=== PATIENT | male | born 1960 | race American Indian/Alaskan Native ===

== ENCOUNTER 2017-01-29 06:21 | Emergency (ER) | payer MEDICAID ==
[2017-01-29 06:21] VITALS: BMI 34.0
[2017-01-29 06:25] VITALS: PULSE 91; RESP 16; TEMP 98; O2SAT 96
--- NOTE | 2017-01-29 07:39 | ED PDOC ---
HPI: Trauma/Fall - HPI Time Seen by Provider: 01/29/17 07:11 Chief Complaint (Nursing): Trauma Chief Complaint (Provider): Fall History Per: Patient History/Exam Limitations: no limitations Onset/Duration Of Symptoms: Hrs Injury Occurred (Timing): Just Before Arrival Severity: None Additional Complaint(s): Patient is a 56 year old male who presents to ED for evaluation of a fall this morning. Patient reports that he fell from his wheelchair sideways when it slipped on water. He then landed on the ground. States that due to his chronic left sided paralysis he had to crawl to a sign post to help him stand up. At this time had mild diffuse body pain which prompted ED visit. Currently in ED patient denies any pain, states mild injury to left hand but denies any pain. Denies numbness, head injury, LOC, neck pain or back pain. No new weakness. Did not hit his head or neck. Past Medical History Reviewed: Historical Data, Nursing Documentation, Vital Signs Vital Signs: Last Vital Signs Temp 98 F 01/29/17 06:23 Pulse 91 H 01/29/17 06:23 Resp 16 01/29/17 06:23 BP 155/110 H 01/29/17 06:23 Pulse Ox 96 01/29/17 06:23 - Medical History PMH: CVA, Deep Vein Thrombosis, Gastritis, HTN, Hyperlipidemia, Peripheral Edema , Pulmonary Embolism, Seizures Other PMH: no blood thinners for 1 month, doctors took him off of them - Surgical History Surgical History: No Surg Hx - Family History Family History: States: Unknown Family Hx - Social History Current smoker - smoking cessation education provided: Yes Alcohol: None Drugs: Denies - Immunization History Hx Influenza Vaccination: Yes - Home Medications Home Medications: Ambulatory Orders Medication Instructions Recorded Enoxaparin [Lovenox] 40 mg SQ DAILY 10/18/16 Levetiracetam [Keppra] 750 mg PO DAILY 10/18/16 - Allergies Allergies/Adverse Reactions: Allergies Allergy/AdvReac Type Severity Reaction Status Date / Time No Known Allergies Allergy Verified 01/29/17 06:23 Review of Systems ROS Statement: Except As Marked, All Systems Reviewed And Found Negative Constitutional: Negative for: Fever, Chills, Weakness Eyes: Negative for: Vision Change Cardiovascular: Negative for: Chest Pain Respiratory: Negative for: Shortness of Breath Gastrointestinal: Negative for: Nausea, Vomiting Musculoskeletal: Negative for: Neck Pain, Back Pain Neurological: Negative for: Weakness, Numbness Physical Exam - Reviewed Nursing Documentation Reviewed: Yes Vital Signs Reviewed: Yes - Physical Exam Appears: Positive for: Non-toxic, No Acute Distress Head Exam: Positive for: ATRAUMATIC, NORMAL INSPECTION Skin: Positive for: Normal Color, Warm Eye Exam: Positive for: Normal appearance, EOMI, PERRL ENT: Positive for: Normal ENT Inspection Neck: Positive for: Normal, Painless ROM, Supple Cardiovascular/Chest: Positive for: Regular Rate, Rhythm. Negative for: Murmur Respiratory: Positive for: Normal Breath Sounds. Negative for: Respiratory Distress Gastrointestinal/Abdominal: Positive for: Normal Exam, Soft. Negative for: Tenderness Back: Positive for: Normal Inspection. Negative for: L CVA Tenderness, R CVA Tenderness Extremity: Positive for: Normal ROM, Other (Left hand: Index, Ring and 5th digtis mid dorsum with small abrasions (-) tenderness (-) active bleeding ). Negative for: Tenderness, Calf Tenderness, Swelling Neurologic/Psych: Positive for: Alert, taper machine II-XII, Oriented. Negative for: Motor/Sensory Deficits (L side almost paralysis; not new) - ECG O2 Sat by Pulse Oximetry: 96 (RA) Pulse Ox Interpretation: Normal - Progress ED Course And Treament: 747: Stable. AAOx3. Bandage applied to abrasions on fingers. Pt. has no pain or complaints. Fu with pcp. Is wheelchair bound. Medical Decision Making Medical Decision Making: Time: 729 Initial impression: Fall Initial plan: Abrasions cleaned and dressed Discussed wound care with patient, advised Motrin or Tylenol as needed for pain and to follow up with PMD' Scribe Attestation: Documented by Rhina Butcher acting as a scribe for Demetrius Ferrer MD MD Scribe Attestation: All medical record entries made by the Scribe were at my direction and personally dictated by me. I have reviewed the chart and agree that the record accurately reflects my personal performance of the history, physical exam, medical decision making, and the department course for this patient. I have also personally directed, reviewed, and agree with the discharge instructions and disposition. Disposition - Clinical Impression Clinical Impression: Abrasion - Patient ED Disposition Is Patient to be Admitted: No Counseled Patient/Family Regarding: Diagnosis, Need For Followup - Disposition Referrals: [facility] [Outside] - 02/01/17 Disposition: Routine/Home Disposition Time: 07:48 Condition: STABLE Additional Instructions: Return if not better in 3 days. Instructions: Abrasion (ED)
[2017-01-29 08:46] VITALS: BP 138/80
== END 2017-01-29 09:43 | disposition home or self-care (01) ==
LOC: H.ER 06:21
DX: T14.8 Other injury of unspecified body region (principal); W05.0XXA Fall from non-moving wheelchair, initial encounter; Y92.89 Other specified places as the place of occurrence of the external cause; E78.5 Hyperlipidemia, unspecified; I10 Essential (primary) hypertension; Z86.711 Personal history of pulmonary embolism; Z86.718 Personal history of other venous thrombosis and embolism; Z86.73 Personal history of transient ischemic attack (TIA), and cerebral infarction without residual deficits

== ENCOUNTER 2017-03-07 18:55 | Inpatient (IN) | payer MEDICAID ==
[2017-03-07 18:56] VITALS: BMI 34.0
[2017-03-07 20:15] LABS: BASO # 0.1 K/uL (0.0-0.2); BASO % 0.8 % (0.0-2.0); EOS # 0.1 K/uL (0.0-0.7); EOS % 1.2 % (0.0-4.0); HEMATOCRIT 38.4 % (35.0-51.0); LYMPH # 3.2 K/uL (1.0-4.3); LYMPH % 28.5 % (20.0-40.0); MEAN CELL VOLUME 76.9 fl (80.0-94.0); MEAN CORPUSCULAR HGB CONC 31.2 g/dL (33.0-37.0); MEAN PLATELET VOLUME 9.6 fl (7.2-11.7); MONO # 0.8 K/uL (0.0-0.8); MONO % 7.1 % (0.0-10.0); NEUT # 6.9 K/uL (1.8-7.0); NEUT % 62.4 % (50.0-75.0); NRBC % 0.1 % (0.0-0.0); RED CELL DISTRIBUTION WIDTH 15.8 % (11.5-14.5); WHITE BLOOD COUNT 11.1 K/uL (4.8-10.8)
[2017-03-07 20:32] LABS: BLOOD UREA NITROGEN 11 mg/dl (9-20); CALCIUM 9.4 mg/dL (8.4-10.2); CARBON DIOXIDE 28 mmol/L (22-30); CHLORIDE 105 mmol/L (98-107); GFR AFRICAN-AMERICAN > 60; GLUCOSE,RANDOM 95 mg/dL (75-110); POTASSIUM 3.9 MMOL/L (3.6-5.0); SODIUM 144 mmol/l (132-148)
--- NOTE | 2017-03-07 21:10 | ED PDOC ---
Lower Extremity Pain/Injury Time Seen by Provider: 03/07/17 19:15 Chief Complaint (Nursing): Lower Extremity Problem/Injury Chief Complaint (Provider): Lower Extremity Problem History Per: Patient History/Exam Limitations: no limitations Onset/Duration Of Symptoms: Days (1x week, worsened today) Current Symptoms Are (Timing): Still Present Severity: Moderate Additional Complaint(s): 56 year old male with a pertinent medical history of CHF and hypertension presents to the ED with complaints of bilateral leg pain and swelling that started 1x week ago, but worsened today when he woke up (approximately 0x hours prior to arrival). He reports that his left leg has more pain and swelling than the right leg. He also reports waking up today with shortness of breath, which has since resolved. He denies having chest pain, fever and cough. Of note: patient has a history of a left sided stroke. He is on disability and is wheelchair bound. PMD: Shi RUIZ Past Medical History Reviewed: Historical Data, Nursing Documentation, Vital Signs Vital Signs: Last Vital Signs Temp 98.2 F 03/07/17 19:02 Pulse 87 03/07/17 19:02 Resp 19 03/07/17 19:02 BP 158/96 H 03/07/17 20:11 Pulse Ox 98 03/07/17 19:02 - Medical History PMH: CVA, Deep Vein Thrombosis, Gastritis, HTN, Hypercholesterolemia, Hyperlipidemia, Peripheral Edema, Pulmonary Embolism, Seizures Denies: Asthma, Atrial Fibrillation, Bronchitis, Cardia Arrhythmia, CHF, COPD , Emphysema, Mitral Valve Prolapse, Pneumonia, Chronic Kidney Disease, Sleep Apnea - Surgical History Surgical History: Denies: Pacemaker - Family History Family History: States: Unknown Family Hx - Living Arrangements Living Arrangements: Other (homeless) - Social History Alcohol: None Drugs: Denies - Immunization History Hx Influenza Vaccination: Yes - Home Medications Home Medications: Ambulatory Orders Medication Instructions Recorded Levetiracetam [Keppra] 750 mg PO DAILY 10/18/16 hydroCHLOROthiazide [Hydrodiuril] 25 mg PO DAILY 02/05/17 Carvedilol [Coreg] 3.125 mg PO BID 02/16/17 Enalapril Maleate [Vasotec] 5 mg PO DAILY 02/16/17 Furosemide [Lasix] 40 mg PO BID 02/16/17 - Allergies Allergies/Adverse Reactions: Allergies Allergy/AdvReac Type Severity Reaction Status Date / Time No Known Allergies Allergy Verified 01/29/17 06:23 Physical Exam - Reviewed Nursing Documentation Reviewed: Yes Vital Signs Reviewed: Yes - Physical Exam Appears: Positive for: Well, Non-toxic, No Acute Distress Head Exam: Positive for: ATRAUMATIC, NORMOCEPHALIC Cardiovascular/Chest: Positive for: Regular Rate, Rhythm Respiratory: Positive for: Normal Breath Sounds. Negative for: Respiratory Distress Gastrointestinal/Abdominal: Positive for: Normal Exam, Soft. Negative for: Tenderness Extremity: Positive for: Calf Tenderness (left calf tenderness only), Swelling ( bilteral lower extremity swelling (more on the lef lower extremity). No erythema.) Neurologic/Psych: Positive for: Alert, Oriented (3x) - Laboratory Results Result Diagrams: 03/07/17 20:05 03/07/17 20:05 - ECG O2 Sat by Pulse Oximetry: 98 (RA) Pulse Ox Interpretation: Normal Medical Decision Making Medical Decision Makin:15 Initial impression: 56 year old male with bilateral lower leg swelling and pain. Differential diagnoses include but are not limited to CHF. Rule out DVT. Initial plan: * EKG * B-type natriuretic peptide * BMP * CBC * XRay chest portable * lasix 40mg IVP * US duplex lower extremity venous left * reevaluation CXR : vascular congestion. Duplex: no acute findings Scribe Attestation: Documented by Anali Zambrano, acting as a scribe for Robyn Barriga MD. Provider Scribe Attestation: All medical record entries made by the Scribe were at my direction and personally dictated by me. I have reviewed the chart and agree that the record accurately reflects my personal performance of the history, physical exam, medical decision making, and the department course for this patient. I have also personally directed, reviewed, and agree with the discharge instructions and disposition. Disposition - Clinical Impression Clinical Impression: HTN (hypertension), CHF (congestive heart failure) - Patient ED Disposition Is Patient to be Admitted: Yes Discussed With Dr.: Toro Ludwig Doctor Will See Patient In The: Hospital Counseled Patient/Family Regarding: Studies Performed, Diagnosis - Disposition Disposition Time: 23:23 Condition: FAIR - Pt Status Changed To: Hospital Disposition Of: Observation - POA Present On Arrival: None
--- NOTE | 2017-03-07 22:15 | US ---
EXAM: US Duplex Left Lower Extremity Veins CLINICAL HISTORY: 56 years old, male; Signs and symptoms; Swelling of limb; Lower extremity, left; Additional info: Left leg swelling TECHNIQUE: Real-time ultrasound scan of the veins of the left lower extremity with color Doppler flow, spectral waveform analysis and compression. COMPARISON: No relevant prior studies available. FINDINGS: Deep veins: Unremarkable. No DVT in the common femoral, femoral, proximal deep femoral or popliteal veins. The veins are compressible with normal color flow and augmentation. Superficial veins: Unremarkable. No thrombus in the visualized greater saphenous vein. Soft tissues: No acute findings. No popliteal cyst. IMPRESSION: Normal left lower extremity duplex venous ultrasound.
[2017-03-08 07:37] LABS: BASO # 0.1 K/uL (0.0-0.2); BASO % 0.7 % (0.0-2.0); EOS # 0.1 K/uL (0.0-0.7); HEMATOCRIT 33.8 % (35.0-51.0); LYMPH # 2.3 K/uL (1.0-4.3); LYMPH % 26.9 % (20.0-40.0); MEAN CELL VOLUME 75.8 fl (80.0-94.0); MEAN CORPUSCULAR HEMOGLOBIN 24.2 pg (27.0-31.0); MEAN PLATELET VOLUME 8.8 fl (7.2-11.7); MONO # 0.7 K/uL (0.0-0.8); MONO % 7.6 % (0.0-10.0); NEUT # 5.4 K/uL (1.8-7.0); NEUT % 63.8 % (50.0-75.0); NRBC % 0.1 % (0.0-0.0); RED CELL DISTRIBUTION WIDTH 15.5 % (11.5-14.5); WHITE BLOOD COUNT 8.5 K/uL (4.8-10.8)
[2017-03-08 07:55] LABS: CHOLESTEROL 148 mg/dL (0-199)
--- NOTE | 2017-03-08 08:04 | RAD ---
HISTORY: Dyspnea. COMPARISON: No prior. FINDINGS: LUNGS: No active pulmonary disease. Persistent elevation left hemidiaphragm, fluid and debris filled colon identified under elevated left hemidiaphragm. PLEURA: No significant pleural effusion identified, no pneumothorax apparent. CARDIOVASCULAR: Cardiomegaly. No evidence of acute, significant cardiovascular disease. OSSEOUS STRUCTURES: No significant abnormalities. VISUALIZED UPPER ABDOMEN: Normal. OTHER FINDINGS: None. IMPRESSION: No active disease. No significant interval change compared to the prior examination(s).
[2017-03-08] MEDS: Enoxaparin 40 mg Syringe SC SCH (08:56)
[2017-03-08] MEDS ORDERED: Patient's Own Med (Levetiracetam [Keppra] 750 MG) PO SCH (09:00)
--- NOTE | 2017-03-08 09:43 | CP.PCM.CON ---
History of Present Illness - History of Present Illness History of Present Illness: Full Note Dictated. CHF (LV, Syst, Chr) Exacerbated with Salt excess HTN Seizure disorder Echo of 01/2017 reviewed (LVEF severely depressed) Jacobo then return pt to his PMD for out pt care. Past Patient History - Infectious Disease Hx of Infectious Diseases: None - Past Medical History & Family History Past Medical History?: Yes - Past Social History Alcohol: None Drugs: Denies - CARDIAC Hx Cardiac Disorders: Yes (HTN, HIGH CHOLESTEROL) - PULMONARY Hx Asthma: No Hx Bronchitis: No Hx Chronic Obstructive Pulmonary Disease (COPD): No Hx Emphysema: No Hx Pneumonia: No Hx Pulmonary Embolism: Yes Hx Sleep Apnea: No - NEUROLOGICAL Hx Neurological Disorder: Yes (CVA LFET SIDED WEAKNESS, WHEELCHAIR BOUND) - HEENT Hx HEENT Problems: No - RENAL Hx Chronic Kidney Disease: No - ENDOCRINE/METABOLIC Hx Endocrine Disorders: No - HEMATOLOGICAL/ONCOLOGICAL Hx Blood Disorders: No - INTEGUMENTARY Hx Dermatological Problems: No - MUSCULOSKELETAL/RHEUMATOLOGICAL Hx Falls: No Hx Unsteady Gait: Yes - GASTROINTESTINAL Hx Gastritis: Yes - GENITOURINARY/GYNECOLOGICAL Hx Incontinence: Yes Hx Urinary Tract Infection: Yes - PSYCHIATRIC Hx Substance Use: No (as per pt) Other/Comment: noncompliance with meds/ medical regimen - SURGICAL HISTORY Hx Surgeries: No Other/Comment: ivc filter - ANESTHESIA Hx Anesthesia: Yes Hx Anesthesia Reactions: No Meds Allergies/Adverse Reactions: Allergies Allergy/AdvReac Type Severity Reaction Status Date / Time No Known Allergies Allergy Verified 01/29/17 06:23 - Medications Medications: Current Medications Carvedilol (Coreg) 3.125 mg PO BID [facility] Last Admin: 03/08/17 08:55 Dose: 3.125 mg Enalapril Maleate (Vasotec) 5 mg PO DAILY [facility] Last Admin: 03/08/17 08:56 Dose: 5 mg Enoxaparin Sodium (Lovenox) 40 mg SC DAILY [facility] PRN Reason: Protocol Last Admin: 03/08/17 08:56 Dose: 40 mg Furosemide (Lasix) 40 mg IV BID [facility] Last Admin: 03/08/17 08:56 Dose: 40 mg Levetiracetam (Keppra) 750 mg PO DAILY [facility] Last Admin: 03/08/17 08:55 Dose: 750 mg Results - Vital Signs Recent Vital Signs: Last Vital Signs Temp 98.8 F 03/08/17 07:54 Pulse 76 03/08/17 08:55 Resp 18 03/08/17 07:54 BP 143/85 03/08/17 08:56 Pulse Ox 97 03/08/17 07:54 - Labs Result Diagrams: 03/08/17 07:15 03/07/17 20:05 Labs: Laboratory Results - last 24 hr 03/08/17 03/08/17 03/08/17 07:15 07:15 07:15 WBC 8.5 RBC 4.47 Hgb 10.8 L Hct 33.8 L MCV 75.8 L MCH 24.2 L MCHC 32.0 L RDW 15.5 H Plt Count 205 MPV 8.8 Neut % (Auto) 63.8 Lymph % (Auto) 26.9 [place] % (Auto) 7.6 Eos % (Auto) 1.0 Baso % (Auto) 0.7 Neut # 5.4 Lymph # 2.3 [place] # 0.7 Eos # 0.1 Baso # 0.1 Triglycerides 77 Cholesterol 148 LDL Cholesterol Direct 85 HDL Cholesterol 35 TSH 3rd Generation 0.85
--- NOTE | 2017-03-08 09:50 | IP.NPCORE ---
Heart Failure Core Measure - Heart Failure Ejection Fraction: Less Than 40 % Left Ventricular Function to be assessed after discharge: No CONOR Inhibitor Prescribed: Yes Beta-Dia Prescribed: Carvedilol Contraindication/Reason for not providing: no hx of afib - Follow up Will be discharged to: [facility] Follow Up Date (must be within 7 days from discharge): 03/17/17 ([facility] ) Follow Up Time: 09:00
--- NOTE | 2017-03-09 01:56 | HP ---
HISTORY OF PRESENT ILLNESS: This is a 56-year-old -[place] male who is homeless and currently lives in a intermediate with history of congestive heart failure, hypertension, status post cerebrovascular accident with left-sided hemiplegia. The patient presented to Emergency Room with progressive by both lower extremities edema over 1 week. The patient also was complaining of shortness of breath. The patient was evaluated in the Emergency Room and he was found to have an elevated proBNP, as well as he had previous echocardiogram with ejection fraction of 35%. The patient was admitted for exacerbation of congestive heart failure, both systolic and diastolic, likely secondary to noncompliance to medications and diet and water restrictions. REVIEW OF SYSTEMS: Positive for left-sided hemiplegia and patient is wheelchair bound. PAST MEDICAL HISTORY: Hypertension, cerebrovascular accident with left-sided hemiplegia. SOCIAL HISTORY: Smoker. Denies ETOH or substance abuse. FAMILY HISTORY: Noncontributory. HOME MEDICATIONS: Enalapril 5 mg daily, hydrochlorothiazide 25 mg daily, furosemide 40 mg twice a day, carvedilol 3.125 mg twice a day, Keppra 750 mg daily. PHYSICAL EXAMINATION: GENERAL: The patient is in bed, not in any cardiopulmonary distress . VITAL SIGNS: Blood pressure 165/90, temperature 98.3, respiratory rate 20, and pulse 86. HEENT: Pupils equal, reactive to light. Normal-appearing mucosa of the conjunctivae, oropharyngeal and nasal membrane mucosa. NECK: Supple, no JVD, no carotid bruit, no lymph node, no thyromegaly. CHEST AND LUNGS: Bilateral symmetrical expansion, good air exchange, no rales, no rhonchi. CARDIOVASCULAR: PMI not localized. S1, S2. No additional sounds. ABDOMEN: Normoactive bowel sounds, no tenderness, no organomegaly, no masses. EXTREMITIES: No cyanosis, no clubbing. Bilateral lower extremity +2 edema. CENTRAL NERVOUS SYSTEM: Alert, awake, oriented x 2. The patient has left- sided hemiplegia. ASSESSMENT: 1. exacerbation of congestive heart failure, acute on top of chronic, systolic and diastolic. 3. Hypertension. 4. Status post cerebrovascular accident with left-sided hemiplegia, wheelchair bound. PLAN: Continue Lasix and beta blockers and CONOR inhibitors. Cardiology consult. Those are recommendations. Physical therapy. [facility] S Oziel RUIZ cc: 167 TT: 03/09/2017 01:55:59 [facility] # [id number] regina KULKARNI
--- NOTE | 2017-03-09 02:17 | CARD ---
APPROVED REPORT EKG Measurement Heart [id number] MD [id number] <Conclusion> Sinus rhythm with occasional premature ventricular complexes Left ventricular hypertrophy with QRS widening Cannot rule out Septal infarct, age undetermined Cannot rule out Inferior infarct, age undetermined Abnormal ECG
[2017-03-09 07:30] LABS: ALB/GLOB RATIO 1.2 (1.0-2.1); ALKALINE PHOSPHATASE 59 U/L (38-126); ALT/SGPT 23 U/L (21-72); AST/SGOT 19 U/L (17-59); BILIRUBIN,TOTAL 0.6 mg/dl (0.2-1.3); BLOOD UREA NITROGEN 9 mg/dl (9-20); CALCIUM 8.6 mg/dL (8.4-10.2); CARBON DIOXIDE 27 mmol/L (22-30); CHLORIDE 104 mmol/L (98-107); GFR AFRICAN-AMERICAN > 60; GLUCOSE,RANDOM 101 mg/dL (75-110); POTASSIUM 3.1 MMOL/L (3.6-5.0); SODIUM 142 mmol/l (132-148); TOTAL PROTEIN 6.9 G/DL (6.3-8.2)
--- NOTE | 2017-03-09 08:41 | CON ---
DATE: 03/08/2017 He is hospitalized under Dr. Oziel leon in room 403, bed 1. HISTORY OF PRESENT ILLNESS: This 56-year-old hypertensive -[place] man has had a history of congestive cardiac failure for which he has repeatedly visited Emergency Room and has been hospitaliz ed a couple of times in this institution and in a nearby hospital. There is a history of seizure dis order for which he is on Keppra. He admits to smoking about a pack of cigarettes a day. Has never s uffered a myocardial infarction, but has had recurring pedal edema and periods of shortness of breath . He denies ever having had a heart attack and has never undergone coronary angiography. By his acc ount, he has taken his medicines regularly, though he admits that he has not been very careful with s alt intake and has eaten preserved food regularly. He began to notice worsening pedal edema and evon domínguez came into the Emergency Room and also describes shortness of breath with minimal exertion. He is not a diabetic. PHYSICAL EXAMINATION: GENERAL: Shows a middle-aged, overweight -[place]rist[place] male who is comfortable, propped up in bed . VITAL SIGNS: With a respiratory rate of approximately 18 breaths per minute. Has a heart rate of 7 4 beats per minute, regular, and a blood pressure of 124/70 mmHg. NECK: His jugular venous pressure was mildly elevated. EXTREMITIES: There was pitting edema of both lower extremities. The pedal pulses were not palpable, probably because of significant pedal edema. CARDIOVASCULAR: There were no carotid bruits. The apex could not be felt. The first and second hea rt sounds were distant. There was a faint S3 gallop. LUNGS: There were scattered rales at both bases. DIAGNOSTIC DATA: His electrocardiogram shows sinus rhythm with poor progression of R-wave on his electrocardiogram at [facility]. Subsequent electrocardiograms show a similar pattern. There is also Q-waves in lead 3, but none seen in aVF. There were nonspecific ST-T changes. Review of his echocardiogram dated 02/17/2017 shows a poor echo window with suboptimal images, but there wa s significant left ventricular systolic dysfunction with generalized hypokinesia particularly pronoun cristofer in the anterior wall and anteroseptal region. The estimated ejection fraction was in the range o f 35%. LABORATORY DATA: Shows a hemoglobin and hematocrit of 12 g and 38.4% respectively. His platelet cou nts were normal and his BUN and creatinine were 11 and 0.9 mg%. His proBNP was 1610. Lipid profile was normal and thyroid profile was normal. Chest x-ray was noted and, again, his echocardiogram of 0 02/17/2017 was reviewed. IMPRESSION: At this time, is congestive cardiac failure which is chronic, left ventricular and systo lic, exacerbated by unrestricted salt intake in a patient with hypertension, history of seizure. The patient is being diuresed with the use of intravenous furosemide. His carvedilol and enalapril have been restarted. His labs are being watched as well. He will get a dietary counseling so as to riccardo ail his salt intake. Once he has been diuresed and euvolemic, he can be returned to his primary care physician and can have outpatient care. Dajuan Will MD cc: 23 TT: 03/08/2017 10:39:36 Confirmation # [id number] Dictation # [id number] mn 03/09/2017 07:38:26
[2017-03-09] MEDS: Enoxaparin 40 mg Syringe SC SCH (09:50)
[2017-03-09] MEDS ORDERED: Potassium Chloride 20 mEq ER Tab PO ONE (10:00)
--- NOTE | 2017-03-09 22:13 | PN ---
DATE: 03/09/2017 SUBJECTIVE: The patient is seen today. He is not in any cardiopulmonary distress at this point and decrease of the edema. OBJECTIVE: VITAL SIGNS: Blood pressure 130/78 , pulse 78 , temp 98.2. HEENT: Pupils equal, reactive to light. Normal-appearing mucosa of the conjunctivae, oropharyngeal, and nasal membrane mucosa. NECK: Supple. No JVD. No carotid bruit. No lymph node. No thyromegaly. CHEST AND LUNGS: Bilateral symmetrical expansion. Good air exchange. No rales. No rhonchi. CARDIOVASCULAR: PMI not localized. S1, S2. No additional sounds. ABDOMEN: Normoactive bowel sounds, No tenderness. No organomegaly. No masses. EXTREMITIES: No cyanosis. No clubbing. No edema. CENTRAL NERVOUS SYSTEM: Alert, awake, oriented x 2. Left-sided hemiparesis. ASSESSMENT: 1. Congestive heart failure, systolic and diastolic, acute on top of chronic. 2. Hypertension. 3. Status post cerebrovascular accident with left-sided hemiplegia. 4. Seizure disorder. PLAN: Continue current medications including flutamide and monitor electrolytes and follow cardiology recommendations and supplement potassium today as potassium is 3.1. Toro Ludwig MD cc: 167 TT: 03/09/2017 22:12:36 Confirmation # [id number] Dictation # [id number] tn MTDD
[2017-03-10 04:38] VITALS: RESP 20; O2SAT 96
[2017-03-10 06:54] LABS: BLOOD UREA NITROGEN 11 mg/dl (9-20); CALCIUM 9.2 mg/dL (8.4-10.2); CARBON DIOXIDE 29 mmol/L (22-30); CHLORIDE 102 mmol/L (98-107); GFR AFRICAN-AMERICAN > 60; GLUCOSE,RANDOM 101 mg/dL (75-110); POTASSIUM 3.4 MMOL/L (3.6-5.0)
[2017-03-10 06:57] LABS: SODIUM 140 mmol/l (132-148)
[2017-03-10] MEDS: Enoxaparin 40 mg Syringe SC SCH (09:50)
[2017-03-10] MEDS ORDERED: Potassium Chloride 20 mEq ER Tab PO ONE (09:52)
[2017-03-10 12:08] VITALS: BP 137/86; PULSE 74; TEMP 97.7
--- NOTE | 2017-03-11 03:00 | DS ---
REASON FOR ADMISSION: The patient is a 56-year-old with history of multiple medical problems including cerebrovascular accident with left-sided hemiplegia, presented with congestive heart failure. COURSE OF HOSPITALIZATION: The patient was admitted to telemetry floor, had a cardiology evaluation by Dr. Maya Will. The patient was diuresed and the patient 's symptoms improved. The patient was discharged on beta marie, CONOR inhibitor and diuretic. The patient was started also on physical therapy and he did well. He was discharged to subacute rehabilitation at [facility]. FINAL DIAGNOSES: Congestive heart failure, acute on top of chronic systolic and diastolic hypertension, cerebrovascular event with left-sided hemiplegia. [facility] Renetta Ludwig MD cc: 167 TT: 03/11/2017 02:59:45 regina KULKARNI
== END 2017-03-10 15:45 | DRG 127 ==
LOC: H.ER 18:55 → H.ERHOLD 23:21 → H.TEL 03-08 00:42 → OBSVTOIN 03-08 11:13 → H.TEL 03-09 09:28
PROVIDERS: ADMIT Internal Medicine; ATTEND Internal Medicine
DX: I11.0 Hypertensive heart disease with heart failure (principal); I69.354 Hemiplegia and hemiparesis following cerebral infarction affecting left non-dominant side; I50.43 Acute on chronic combined systolic (congestive) and diastolic (congestive) heart failure; Z59.0 Homelessness; G40.909 Epilepsy, unspecified, not intractable, without status epilepticus; E78.00 Pure hypercholesterolemia, unspecified; E78.5 Hyperlipidemia, unspecified; F17.200 Nicotine dependence, unspecified, uncomplicated; Z86.711 Personal history of pulmonary embolism; Z99.3 Dependence on wheelchair; Z86.718 Personal history of other venous thrombosis and embolism; K29.70 Gastritis, unspecified, without bleeding; E66.3 Overweight; Z68.32 Body mass index [BMI] 32.0-32.9, adult

== ENCOUNTER 2017-04-07 01:30 | Emergency (ER) | payer MEDICAID ==
[2017-04-07 01:30] VITALS: BMI 34.0
[2017-04-07 02:17] LABS: BASO # 0.1 K/uL (0.0-0.2); BASO % 0.6 % (0.0-2.0); EOS # 0.2 K/uL (0.0-0.7); EOS % 1.6 % (0.0-4.0); HEMATOCRIT 39.4 % (35.0-51.0); LYMPH # 2.9 K/uL (1.0-4.3); LYMPH % 27.4 % (20.0-40.0); MEAN CELL VOLUME 77.6 fl (80.0-94.0); MEAN CORPUSCULAR HEMOGLOBIN 23.7 pg (27.0-31.0); MEAN CORPUSCULAR HGB CONC 30.5 g/dL (33.0-37.0); MEAN PLATELET VOLUME 9.3 fl (7.2-11.7); MONO # 0.7 K/uL (0.0-0.8); NEUT # 6.7 K/uL (1.8-7.0); NEUT % 63.4 % (50.0-75.0); RED CELL DISTRIBUTION WIDTH 15.3 % (11.5-14.5); WHITE BLOOD COUNT 10.6 K/uL (4.8-10.8)
[2017-04-07 02:26] LABS: BLOOD UREA NITROGEN 11 mg/dl (9-20); CALCIUM 9.5 mg/dL (8.4-10.2); CARBON DIOXIDE 21 mmol/L (22-30); CHLORIDE 106 mmol/L (98-107); GFR AFRICAN-AMERICAN > 60; GLUCOSE,RANDOM 90 mg/dL (75-110); SODIUM 143 mmol/l (132-148)
--- NOTE | 2017-04-07 03:28 | ED PDOC ---
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 Notes that he is noncompliant with his prescription for Keppra and that he lives in the custodial. EMS states that patient had a witnessed seizure at the custodial. (+) bit tongue and post-ictal state. PCP: Non [facility] Past Medical History Reviewed: Historical Data, Nursing Documentation, Vital Signs Vital Signs: Last Vital Signs Temp 97.5 F L 04/07/17 01:32 Pulse 90 04/07/17 01:32 Resp 16 04/07/17 01:32 BP 160/103 H 04/07/17 01:32 Pulse Ox 96 04/07/17 07:06 - Medical History PMH: CVA, Deep Vein Thrombosis, Gastritis, HTN, Hypercholesterolemia, Hyperlipidemia, Peripheral Edema, Pulmonary Embolism, Seizures Denies: Asthma, Atrial Fibrillation, Bronchitis, Cardia Arrhythmia, CHF, COPD , Emphysema, Mitral Valve Prolapse, Pneumonia, Chronic Kidney Disease, Sleep Apnea - Surgical History Surgical History: Denies: Pacemaker - Family History Family History: States: Unknown Family Hx - Living Arrangements Living Arrangements: Other (Alf) - Immunization History Hx Influenza Vaccination: Yes - Home Medications Home Medications: Ambulatory Orders Medication Instructions Recorded Levetiracetam [Keppra] 750 mg PO DAILY 10/18/16 hydroCHLOROthiazide [Hydrodiuril] 25 mg PO DAILY 02/05/17 Carvedilol [Coreg] 3.125 mg PO BID 02/16/17 Enalapril Maleate [Vasotec] 5 mg PO DAILY 02/16/17 Furosemide [Lasix] 40 mg PO BID 02/16/17 Potassium Chloride [K-Dur 20] 20 meq PO DAILY #10 tab 03/10/17 - Allergies Allergies/Adverse Reactions: Allergies Allergy/AdvReac Type Severity Reaction Status Date / Time No Known Allergies Allergy Verified 04/07/17 01:32 Review of Systems ROS Statement: Except As Marked, All Systems Reviewed And Found Negative Neurological: Positive for: Seizures (witnessed seizure with tongue biting) Physical Exam - Reviewed Nursing Documentation Reviewed: Yes Vital Signs Reviewed: Yes - Physical Exam Appears: Positive for: Non-toxic, No Acute Distress (Tired appearing, post- ictal state) Head Exam: Positive for: ATRAUMATIC, NORMOCEPHALIC Skin: Positive for: Normal Color, Warm, Dry Eye Exam: Positive for: Normal appearance ENT: Positive for: Other (Tongue maceration) Cardiovascular/Chest: Positive for: Regular Rate, Rhythm. Negative for: Murmur Respiratory: Positive for: Normal Breath Sounds. Negative for: Respiratory Distress Gastrointestinal/Abdominal: Positive for: Normal Exam Extremity: Negative for: Normal ROM (Contracted LUE. Normal RUE/RLE) Neurologic/Psych: Negative for: Motor/Sensory Deficits - Laboratory Results Result Diagrams: 04/07/17 02:14 04/07/17 02:14 - ECG O2 Sat by Pulse Oximetry: 96 (RA) Pulse Ox Interpretation: Normal Medical Decision Making Medical Decision Makin Initial impression: seizure in setting of noncompliance with medication Initial plan: * EKG * UDrug Screen * Levetiracetam * Keppra IVPB * UA * Re-eval 0700 Upon re-evaluation, patient is feeling much better now. Post-ictal state has completely ended, and the patient is awake and A&Ox3. C/o of rib pain on L, will do rib series. Case endorsed to Dr. Ng. Scribe Attestation: Documented by Diane Wilburn acting as a scribe for Luis Durant MD. Scribe Attestation: All medical record entries made by the Scribe were at my direction and personally dictated by me. I have reviewed the chart and agree that the record accurately reflects my personal performance of the history, physical exam, medical decision making, and the department course for this patient. I have also personally directed, reviewed, and agree with the discharge instructions and disposition. Disposition - Clinical Impression Clinical Impression: Witnessed seizure - Patient ED Disposition Is Patient to be Admitted: No Counseled Patient/Family Regarding: Diagnosis - Disposition Disposition: Transfer of Care Disposition Time: 07:00 Condition: STABLE Patient Signed Over To: Toan Ng Handoff Comments: Pending rib series
[2017-04-07 05:26] LABS: RBC URINE 3 /hpf (0-3); URINE BACTERIA RARE (<OCC); URINE BILIRUBIN NEGATIVE (NEGATIVE); URINE BLOOD SMALL (NEGATIVE); URINE COLOR YELLOW (YELLOW); URINE GLUCOSE (UA) NEG (Normal); URINE KETONE NEGATIVE (NEGATIVE); URINE LEUKOCYTE ESTERASE NEG Leu/uL (Negative); URINE PROTEIN >=500 mg/dL (NEGATIVE); URINE UROBILINOGEN 0.2-1.0 mg/dL (0.2-1.0); WBC URINE 1 /hpf (0-5)
--- NOTE | 2017-04-07 08:42 | ED PDOC ---
- Laboratory Results Result Diagrams: 04/07/17 02:14 04/07/17 02:14 - ECG O2 Sat by Pulse Oximetry: 96 (RA) - Progress Re-evaluation Time: 08:40 Condition: Improved (Awake alert oriented x 3 no focal neuro deficits) Disposition - Clinical Impression Clinical Impression: Witnessed seizure - POA Present On Arrival: None - Disposition Disposition: Routine/Home Disposition Time: 08:41 Condition: STABLE Prescriptions: Levetiracetam [Keppra] 500 mg PO BID #30 tablet Instructions: Recurrent Seizures in Adults (ED)
[2017-04-07 10:01] VITALS: O2SAT 99
[2017-04-07 11:31] VITALS: BP 138/82; PULSE 75; RESP 18; TEMP 98.4
[2017-04-07 15:26] LABS: POTASSIUM 4.2 MMOL/L (3.6-5.0)
--- NOTE | 2017-04-07 15:33 | RAD ---
PROCEDURE: Radiographs of the Chest and Left Ribs. HISTORY: rib pain COMPARISON: 03/07/2017. TECHNIQUE: Frontal radiograph of the chest and multiple oblique radiographs of the left ribs were obtained. FINDINGS: LEFT RIBS: No fracture or focal lesion visualized. LUNGS: Clear. PLEURA: No pneumothorax or pleural fluid. CARDIOVASCULAR: No radiographic findings to suggest acute or significant cardiovascular disease. OTHER FINDINGS: None. IMPRESSION: No acute findings related to/accounting for the clinical presentation.
--- NOTE | 2017-04-07 15:38 | CARD ---
APPROVED REPORT EKG Measurement Heart [id number] <Conclusion> Normal sinus rhythm Septal infarct, age undetermined-not diagnostic Abnormal ECG
== END 2017-04-07 11:32 | disposition home or self-care (01) ==
LOC: H.ER 01:30
DX: G40.909 Epilepsy, unspecified, not intractable, without status epilepticus (principal)

== ENCOUNTER 2017-04-16 22:57 | Emergency (ER) | payer MEDICAID ==
[2017-04-16 22:58] VITALS: BMI 34.0
[2017-04-16 23:06] VITALS: BP 145/87; PULSE 78; RESP 20; TEMP 99; O2SAT 98
--- NOTE | 2017-04-16 23:28 | ED PDOC ---
HPI: General Adult Time Seen by Provider: 04/16/17 23:25 Chief Complaint (Nursing): Rib Injury Chief Complaint (Provider): RIB INJURY History Per: Patient (56 Y/O MALE UNDOMICILED HERE WITH LEFT SIDED CHEST PAIN ONGOING SINCE RIB INJURY LAST WEEK. STATES HE WAS SEEN AT [facility] AND ALSO [facility] WITH DIAGNOSIS OF RIB FX. DENIES ANY REPEAT INJURIES. TAKES TYLENOL #3 FOR PAIN.) Past Medical History Reviewed: Historical Data, Nursing Documentation, Vital Signs Vital Signs: Last Vital Signs Temp 99 F 04/16/17 23:04 Pulse 78 04/16/17 23:04 Resp 20 04/16/17 23:04 BP 145/87 04/16/17 23:04 Pulse Ox 98 04/16/17 23:04 - Medical History PMH: CVA, Deep Vein Thrombosis, Gastritis, HTN, Hypercholesterolemia, Hyperlipidemia, Peripheral Edema, Pulmonary Embolism, Seizures Denies: Asthma, Atrial Fibrillation, Bronchitis, Cardia Arrhythmia, CHF, COPD , Emphysema, Mitral Valve Prolapse, Pneumonia, Chronic Kidney Disease, Sleep Apnea - Surgical History Surgical History: Denies: Pacemaker - Family History Family History: States: Unknown Family Hx - Immunization History Hx Influenza Vaccination: Yes - Home Medications Home Medications: Ambulatory Orders Medication Instructions Recorded Levetiracetam [Keppra] 750 mg PO DAILY 10/18/16 hydroCHLOROthiazide [Hydrodiuril] 25 mg PO DAILY 02/05/17 Carvedilol [Coreg] 3.125 mg PO BID 02/16/17 Enalapril Maleate [Vasotec] 5 mg PO DAILY 02/16/17 Furosemide [Lasix] 40 mg PO BID 02/16/17 Potassium Chloride [K-Dur 20] 20 meq PO DAILY #10 tab 03/10/17 Levetiracetam [Keppra] 500 mg PO BID #30 tablet 04/07/17 Ibuprofen [Motrin] 1 tab PO TID PRN #30 tab 04/10/17 traMADol [Ultram] 50 mg PO Q6 PRN #20 tab 04/10/17 - Allergies Allergies/Adverse Reactions: Allergies Allergy/AdvReac Type Severity Reaction Status Date / Time No Known Allergies Allergy Verified 04/10/17 01:30 Review of Systems ROS Statement: Except As Marked, All Systems Reviewed And Found Negative Physical Exam - Reviewed Nursing Documentation Reviewed: Yes Vital Signs Reviewed: Yes - Physical Exam Appears: Positive for: Well, Non-toxic, No Acute Distress Head Exam: Positive for: ATRAUMATIC, NORMAL INSPECTION, NORMOCEPHALIC Skin: Positive for: Normal Color, Warm, DRY Eye Exam: Positive for: EOMI, Normal appearance, PERRL ENT: Positive for: Normal ENT Inspection Neck: Positive for: Normal, Painless ROM Cardiovascular/Chest: Positive for: Regular Rate, Rhythm. Negative for: Chest Non Tender (LEFT CHEST WALL TENDER POINT TENDERNESS LEFT LATERAL RIB; LUNGS CTAB ) Respiratory: Positive for: CNT, Normal Breath Sounds Gastrointestinal/Abdominal: Positive for: Normal Exam, Bowel Sounds, Soft Back: Positive for: Normal Inspection Extremity: Positive for: Normal ROM Neurologic/Psych: Positive for: Alert, Oriented - ECG O2 Sat by Pulse Oximetry: 98 - Progress ED Course And Treament: TORADOL 30 MG IM X 1 DOSE CXR RESULTS REVIEWED FROM 04/10: NO OBVIOUS FX OR PULMONARY INJURY NOTED. Disposition - Clinical Impression Clinical Impression: Rib injury - Patient ED Disposition Is Patient to be Admitted: No - Disposition Referrals: [facility] [Outside] Disposition: Routine/Home Disposition Time: 23:28 Condition: FAIR Instructions: Rib Fracture (ED)
== END 2017-04-17 06:30 | disposition home or self-care (01) ==
LOC: H.ER 22:57
DX: S29.9XXA Unspecified injury of thorax, initial encounter (principal); X58.XXXA Exposure to other specified factors, initial encounter; I10 Essential (primary) hypertension; E78.00 Pure hypercholesterolemia, unspecified

== ENCOUNTER 2017-10-08 08:12 | Emergency (ER) | payer MEDICAID ==
[2017-10-08 08:19] VITALS: BMI 28.8
[2017-10-08 08:20] VITALS: TEMP 98.4
[2017-10-08] MEDS ORDERED: Sodium Chloride 0.9% 500 ML IV SCH (08:45)
--- NOTE | 2017-10-08 09:04 | ED PDOC ---
HPI:STROKE - Time Time: 08:20 - Historian Historian: EMS (Limited H and P due to pt. condition) - Chief Complaint Chief Complaint: Mental status change - Onset Date: 10/07/17 Time: 19:00 - Timing Timing: Currently Symptomatic - TPA Positive for Contraindication: Yes Reason tPA is not being Administered: out of window - Notes: Notes:: Manuel Ji is a 57 year old male with a past medical history of stroke and hypertension brought to the ED via EMS s/p decreased responsiveness and excessive sleepiness while at the intermediate this morning prior to arrival. EMS reports the intermediate called them reporting the patient was not responding properly and would not fully wake up. According to EMS, the patient was able to stand up using his walker and responded to some questions. Upon ED evaluation, the patient is incoherent and not following commands. Of note, the patient has left sided weakness from previous stroke. PMD: None Provided NIHSS Stroke Scale - Date/Time Evaluation Performed Date Performed: 10/08/17 Time Performed: 08:32 When Was NIHSS Performed: Baseline - How Severe is the Stroke Level of Consciousness: 1=Drowsy LOC to Questions: 2=Neither correct LOC to commands: 2=Neither correct Best Gaze: 0=Normal Visual: 0=No visual loss Facial: 0=Normal Motor Arm - Left: 2=Falls before 10 sec Motor Arm - Right: 2=Falls before 10 sec Motor Leg - Left: 2=Falls before 5 sec Motor Leg - Right: 2=Falls before 5 sec Limb Ataxia: 1=Present Upper or Lower Sensory: 0=Normal Best Language: 1=Mild to moderate aphasia Dysarthia: 2=Severe, near unintelligible or worse Extinction & Inattention (Neglect): 0=Normal, no object Score: 17 rTPA Inclusion/Exclusion - Refusal of Treatment Patient Refused Treatment: No - Inclusion Criteria for Altepase Patient is 18 years or Older: Yes The Clinical Diagnosis of Ischemic Stroke That is Causing a Potentially Disabling Neurological Deficit: No Time of Onset is Well Established to be Less Than 270 Minute Before Treatment Would Begin: No Risk/Benefit Discussed With Patient/Family Member Present: No Past Medical History Reviewed: Historical Data, Nursing Documentation, Vital Signs Vital Signs: Last Vital Signs Temp 98.4 F 10/08/17 08:20 Pulse 93 H 10/08/17 08:20 Resp 17 10/08/17 08:20 BP 166/102 H 10/08/17 08:20 Pulse Ox 98 10/08/17 08:20 - Medical History PMH: Atrial Fibrillation, CHF, COPD, CVA, Deep Vein Thrombosis, Gastritis, HTN, Hypercholesterolemia, Hyperlipidemia, Peripheral Edema, Pulmonary Embolism, Seizures (last episode 03/2017) Denies: Bronchitis, Cardia Arrhythmia, Emphysema, Mitral Valve Prolapse, Pneumonia, Chronic Kidney Disease, Sleep Apnea - Surgical History Surgical History: Denies: Pacemaker - Family History Family History: States: Unknown Family Hx - Immunization History Hx Tetanus Toxoid Vaccination: Yes Hx Influenza Vaccination: Yes Hx Pneumococcal Vaccination: (unk) - Home Medications Home Medications: Ambulatory Orders Medication Instructions Recorded Aspirin [Ecotrin] 81 mg PO DAILY #30 tabec 09/01/17 Levetiracetam [Keppra] 750 mg PO DAILY #60 tablet 09/01/17 Lisinopril [Zestril] 20 mg PO DAILY #30 tab 09/01/17 levETIRAcetam [Keppra] 750 mg PO BID #60 tab 09/01/17 Aspirin [Ecotrin] 81 mg PO DAILY tabec 09/15/17 Carvedilol [Coreg] 6.25 mg PO BID tab 09/15/17 Carvedilol [Coreg] 6.25 mg PO BID #60 tab 09/15/17 Lisinopril [Zestril] 20 mg PO DAILY #30 tab 09/15/17 - Allergies Allergies/Adverse Reactions: Allergies Allergy/AdvReac Type Severity Reaction Status Date / Time PORK Allergy Mild URTICARIA Verified 09/12/17 19:41 Review of Systems Review Of Systems: ROS cannot be obtained secondary to pt's inabilty to answer questions. (patient is incoherent with decreased responsiveness upon evaluation) Physical Exam - Reviewed Nursing Documentation Reviewed: Yes Vital Signs Reviewed: Yes - Physical Exam Appears: Positive for: Non-toxic, No Acute Distress Head Exam: Positive for: ATRAUMATIC, NORMOCEPHALIC Skin: Positive for: Normal Color, Warm, Dry Eye Exam: Positive for: Normal appearance, PERRL, Other (pupils 1+ bilaterally) ENT: Positive for: Normal ENT Inspection Neck: Positive for: Supple Cardiovascular/Chest: Positive for: Regular Rate, Rhythm, Chest Non Tender. Negative for: Edema, Murmur Respiratory: Positive for: Normal Breath Sounds. Negative for: Respiratory Distress Gastrointestinal/Abdominal: Positive for: Normal Exam, Soft. Negative for: Tenderness Back: Positive for: Normal Inspection Extremity: Negative for: Pedal Edema, Deformity Neurologic/Psych: Positive for: Other (patient is garbling words). Negative for : Alert (limited due to patient not following commands), Oriented - Laboratory Results Result Diagrams: 10/08/17 09:32 10/08/17 09:32 Interpretation Of Abn Labs: no acute - ECG ECG: Positive for: Interpreted By Me, Viewed By Me ECG Rhythm: Positive for: Sinus Rhythm, Nonspecific Changes (same as old) O2 Sat by Pulse Oximetry: 98 (RA) Pulse Ox Interpretation: Normal - Radiology X-Ray: Read By Radiologist X-Ray Interpretation: No Acute Disease - CT Scan/US head Other Rad Studies (CT/US): Read By Radiologist, Radiology Report Reviewed Other Rad Interpretation: no acute - Progress ED Course And Treament: 1252: Stable. AAOx3. Admits to using 2 bags of heroine today. Communicating fully. Asking to eat a sandwich and being rude to staff. Medical Decision Making Medical Decision Making: Time: 08:20 Impression: Decreased responsiveness, incoherence Plan: * Type and Screen * ED EKG * Alcohol Serum * CMP * Drug Screen, urine * Hemoglobin A1C * Lipid panel * Troponin I * CBC (with differential) * Partial Thromboplastin * Prothrombin Time * NS 0.9% 500 ml IV 150 mls/hr * Glucose, Blood, POC * Nursing Swallow Screen * Vital Signs Q15min * CT Head W/O Contrast * [RAD] Chest Portable * Reevaluation Scribe Attestation: Documented by Marissa Kinney, acting as a scribe for Demetrius Ferrer MD. Provider Scribe Attestation: All medical record entries made by the Scribe were at my direction and personally dictated by me. I have reviewed the chart and agree that the record accurately reflects my personal performance of the history, physical exam, medical decision making, and the department course for this patient. I have also personally directed, reviewed, and agree with the discharge instructions and disposition. Disposition - Clinical Impression Clinical Impression: Drug abuse - Patient ED Disposition Is Patient to be Admitted: No Counseled Patient/Family Regarding: Studies Performed, Diagnosis, Need For Followup - Disposition Referrals: [facility] [Outside] - 10/11/17 Disposition: Routine/Home Disposition Time: 12:56 Condition: STABLE Additional Instructions: Return if not better in 3 days. Instructions: Polysubstance Abuse (ED)
[2017-10-08 09:37] LABS: BASO # 0.1 K/uL (0.0-0.2); BASO % 0.7 % (0.0-2.0); EOS # 0.1 K/uL (0.0-0.7); EOS % 0.8 % (0.0-4.0); HEMATOCRIT 36.2 % (35.0-51.0); LYMPH # 2.1 K/uL (1.0-4.3); LYMPH % 20.8 % (20.0-40.0); MEAN CORPUSCULAR HEMOGLOBIN 24.4 pg (27.0-31.0); MEAN CORPUSCULAR HGB CONC 31.3 g/dL (33.0-37.0); MEAN PLATELET VOLUME 8.9 fl (7.2-11.7); MONO # 0.8 K/uL (0.0-0.8); MONO % 7.5 % (0.0-10.0); NEUT # 7.1 K/uL (1.8-7.0); NEUT % 70.2 % (50.0-75.0); RED CELL DISTRIBUTION WIDTH 14.7 % (11.5-14.5)
[2017-10-08 09:50] LABS: PARTIAL THROMBOPLASTIN TIME 29.4 Seconds (25.6-37.1)
[2017-10-08 09:53] LABS: ALCOHOL SERUM < 10 mg/dl (0-10); ALKALINE PHOSPHATASE 55 U/L (38-126); ALT/SGPT 43 U/L (21-72); AST/SGOT 15 U/L (17-59); BILIRUBIN,TOTAL 0.5 mg/dl (0.2-1.3); BLOOD UREA NITROGEN 10 mg/dl (9-20); CALCIUM 8.5 mg/dL (8.4-10.2); CARBON DIOXIDE 23 mmol/L (22-30); CHLORIDE 107 mmol/L (98-107); CHOLESTEROL 149 mg/dL (0-199); GFR AFRICAN-AMERICAN > 60; GLUCOSE,RANDOM 96 mg/dL (75-110); POTASSIUM 3.7 MMOL/L (3.6-5.0); SODIUM 140 mmol/l (132-148); TOTAL PROTEIN 6.2 G/DL (6.3-8.2)
[2017-10-08 09:58] VITALS: RESP 16
[2017-10-08 10:02] LABS: ALB/GLOB RATIO 1.2 (1.0-2.1)
--- NOTE | 2017-10-08 11:11 | CT ---
PROCEDURE: CT HEAD WITHOUT CONTRAST. HISTORY: stroke eval COMPARISON: None available. TECHNIQUE: Axial computed tomography images were obtained through the head/brain without intravenous contrast. Radiation dose: Total exam DLP = 1003.48 mGy-cm. This CT exam was performed using one or more of the following dose reduction techniques: Automated exposure control, adjustment of the mA and/or kV according to patient size, and/or use of iterative reconstruction technique. FINDINGS: HEMORRHAGE: No intracranial hemorrhage. BRAIN: No mass effect or edema. Evidence of old right MCA CVA. Internal capsular infarcts also identified. No new/ superimposed-acute abnormalities. VENTRICLES: Unremarkable. No hydrocephalus. CALVARIUM: Unremarkable. PARANASAL SINUSES: Unremarkable as visualized. No significant inflammatory changes. MASTOID AIR CELLS: Unremarkable as visualized. No inflammatory changes. OTHER FINDINGS: None. IMPRESSION: No acute intracranial abnormalities. No significant findings to account for the clinical presentation. Evidence of old cortical infarction corresponding to branch vessel right MCA. Underlying cortical atrophy.
--- NOTE | 2017-10-08 11:12 | RAD ---
HISTORY: stroke eval COMPARISON: 04/07/2017 FINDINGS: LUNGS: Chronic interstitial lung disease. Findings accentuated by rotation and portable technique. PLEURA: No significant pleural effusion identified, no pneumothorax apparent. CARDIOVASCULAR: Cardiomegaly. No evidence of acute, significant cardiovascular disease. OSSEOUS STRUCTURES: No significant abnormalities. VISUALIZED UPPER ABDOMEN: Normal. OTHER FINDINGS: None. IMPRESSION: No active disease. No significant interval change compared to the prior examination(s).
[2017-10-08 12:03] VITALS: BP 149/84; PULSE 78
[2017-10-08 12:56] VITALS: O2SAT 98
--- NOTE | 2017-10-08 18:18 | CARD ---
APPROVED REPORT EKG Measurement Heart [id number] <Conclusion> Sinus rhythm with occasional premature ventricular complexes Left axis deviation Left ventricular hypertrophy with QRS widening Cannot rule out Septal infarct, age undetermined Inferior infarct, age undetermined Abnormal ECG
== END 2017-10-08 13:53 | disposition home or self-care (01) ==
LOC: H.ER 08:12
DX: F11.10 Opioid abuse, uncomplicated (principal); Z79.82 Long term (current) use of aspirin; Z86.711 Personal history of pulmonary embolism; Z86.718 Personal history of other venous thrombosis and embolism; Z86.73 Personal history of transient ischemic attack (TIA), and cerebral infarction without residual deficits; E78.00 Pure hypercholesterolemia, unspecified; I11.0 Hypertensive heart disease with heart failure; I48.91 Unspecified atrial fibrillation; I50.9 Heart failure, unspecified; J44.9 Chronic obstructive pulmonary disease, unspecified; I49.3 Ventricular premature depolarization
CPT/HCPCS: 70450; 71010; 80053; 80061; 80320; 80324; 80345; 80346; 80349; 80353; 80358; 80361; 82948; 83036; 83992; 84484; 85025; 85610; 85730; 86850; 86900; 93005; 99285; J7040

== ENCOUNTER 2017-12-13 17:51 | Inpatient (IN) | payer MEDICAID ==
[2017-12-13 18:46] LABS: VENOUS BLOOD GAS BASE EXCESS 3.4 mmol/L (0.0-2.0); VENOUS BLOOD GAS PCO2 44 mmHg (40-60); VENOUS BLOOD GAS PO2 25 mm/Hg (30-55); VENOUS BLOOD PH 7.42 (7.32-7.43)
[2017-12-13 19:08] LABS: BASO # 0.1 K/uL (0.0-0.2); BASO % 0.8 % (0.0-2.0); EOS # 0.1 K/uL (0.0-0.7); EOS % 0.9 % (0.0-4.0); HEMOGLOBIN 11.4 g/dL (12.0-18.0); LYMPH # 1.9 K/uL (1.0-4.3); LYMPH % 18.4 % (20.0-40.0); MEAN CORPUSCULAR HEMOGLOBIN 23.4 pg (27.0-31.0); MEAN CORPUSCULAR HGB CONC 30.7 g/dL (33.0-37.0); MEAN PLATELET VOLUME 9.5 fl (7.2-11.7); MONO # 0.6 K/uL (0.0-0.8); MONO % 6.1 % (0.0-10.0); NEUT # 7.4 K/uL (1.8-7.0); NEUT % 73.8 % (50.0-75.0); RBC 4.9 Mil/uL (4.40-5.90); RED CELL DISTRIBUTION WIDTH 16.2 % (11.5-14.5); WHITE BLOOD COUNT 10.1 K/uL (4.8-10.8)
[2017-12-13 19:18] LABS: PROTHROMBIN TIME 12.4 Seconds (9.8-13.1)
[2017-12-13 19:19] LABS: ALB/GLOB RATIO 1.1 (1.0-2.1); ALBUMIN 3.6 g/dL (3.5-5.0); ALT/SGPT 60 U/L (21-72); AST/SGOT 41 U/L (17-59); BLOOD UREA NITROGEN 14 mg/dl (9-20); CALCIUM 9.2 mg/dL (8.4-10.2); GFR AFRICAN-AMERICAN > 60; GFR NON-AFRICAN AMERICAN > 60; INR 1.1 (0.9-1.2); MAGNESIUM 2.1 MG/DL (1.6-2.3); PARTIAL THROMBOPLASTIN TIME 25.5 Seconds (25.6-37.1)
[2017-12-13 19:32] LABS: B-TYPE NATRIURETIC PEPTIDE 8460 pg/ml (0-900)
[2017-12-13] MEDS ORDERED: Sodium Chloride 0.9% 50 ML IV ONE (19:51)
[2017-12-13] MEDS ORDERED: Iodixanol 320 MG/ML 100 ML BOTTLE IV ONE (19:51)
--- NOTE | 2017-12-13 21:32 | ED PDOC ---
HPI: SOB/CHF/COPD Time Seen by Provider: 12/13/17 18:08 Chief Complaint (Nursing): Shortness Of Breath Chief Complaint (Provider): shortness of breath History Per: Patient History/Exam Limitations: no limitations Onset/Duration Of Symptoms: Hrs (1) Associated Symptoms: denies: Fever, Chest Pain Additional Complaint(s): 57 year old male presents to the ED complaining of shortness of breath onset one prior to arrival with associated symptoms of productive cough and leg swelling. Reports compliance with his medications. Denies chest pain or fever. PMD: Dr. Still Past Medical History Reviewed: Historical Data, Nursing Documentation, Vital Signs Vital Signs: Last Vital Signs Temp 98.4 F 12/21/17 12:00 Pulse 64 12/21/17 12:00 Resp 18 12/21/17 12:00 BP 104/65 12/21/17 12:00 Pulse Ox 98 12/21/17 12:00 - Medical History PMH: Atrial Fibrillation, CHF, COPD, CVA ( left hemiparesis), Deep Vein Thrombosis, Gastritis, HTN, Hypercholesterolemia, Hyperlipidemia, Peripheral Edema, Pulmonary Embolism, Seizures (last episode 03/2017) Denies: Bronchitis, Cardia Arrhythmia, Emphysema, Mitral Valve Prolapse, Pneumonia, Chronic Kidney Disease, Sleep Apnea - Surgical History Surgical History: Denies: Pacemaker - Family History Family History: States: Unknown Family Hx - Social History Current smoker - smoking cessation education provided: Yes Drugs: Other (substance abuse) - Immunization History Hx Tetanus Toxoid Vaccination: Yes Hx Influenza Vaccination: Yes Hx Pneumococcal Vaccination: (unk) - Home Medications Home Medications: Ambulatory Orders Medication Instructions Recorded Aspirin [Ecotrin] 81 mg PO DAILY #30 tabec 09/01/17 levETIRAcetam [Keppra] 750 mg PO BID #60 tab 09/01/17 Carvedilol [Coreg] 6.25 mg PO BID #60 tab 09/15/17 Enalapril Maleate [Vasotec] 5 mg PO DAILY 12/14/17 Furosemide [Lasix] 20 mg PO DAILY 12/14/17 Rosuvastatin Calcium [Crestor] 20 mg PO DAILY 12/14/17 Spironolactone [Aldactone] 25 mg PO DAILY 12/14/17 hydroCHLOROthiazide [Hydrodiuril] 25 mg PO DAILY 12/14/17 Apixaban [Eliquis] 5 mg PO BID #60 tab 12/20/17 - Allergies Allergies/Adverse Reactions: Allergies Allergy/AdvReac Type Severity Reaction Status Date / Time PORK Allergy Mild URTICARIA Verified 09/12/17 19:41 Review of Systems ROS Statement: Except As Marked, All Systems Reviewed And Found Negative (As per HPI, otherwise neagtive) Constitutional: Negative for: Fever Cardiovascular: Negative for: Chest Pain Respiratory: Positive for: Shortness of Breath Physical Exam - Reviewed Nursing Documentation Reviewed: Yes Vital Signs Reviewed: Yes - Physical Exam Appears: Positive for: Uncomfortable, In Acute Distress Head Exam: Positive for: ATRAUMATIC, NORMOCEPHALIC Skin: Positive for: Warm, Dry Eye Exam: Positive for: EOMI, PERRL ENT: Negative for: Pharyngeal Erythema, Tonsillar Exudate Cardiovascular/Chest: Positive for: Edema. Negative for: Murmur Respiratory: Positive for: Decreased Breath Sounds (bases), Respiratory Distress. Negative for: Accessory Muscle Use Gastrointestinal/Abdominal: Positive for: Soft. Negative for: Tenderness Back: Positive for: Normal Inspection. Negative for: Decreased ROM Extremity: Positive for: Pedal Edema. Negative for: Deformity Lymphatic: Negative for: Adenopathy Neurologic/Psych: Positive for: Alert. Negative for: Motor/Sensory Deficits - Laboratory Results Result Diagrams: 12/16/17 04:45 12/17/17 07:48 - ECG O2 Sat by Pulse Oximetry: 98 (RA) Pulse Ox Interpretation: Normal Medical Decision Making Medical Decision Making: Time: 18:19 Initial Impression: SOB, Leg edema Differential Diagnosis includes but is not limited to: Congestive heart failure , pulmonary embolism, Deep vein thrombosis, ACS, and Pneumonia Initial Plan: --Type and Screen -Venous Blood Gas Shock Panel --EKG --Alcohol Serum --B-Type Natriuretic Peptide --CMP --Magnesium --Phosphorous --Thyroid Stimulating Hormone --Troponin I --CDC --D-Dimer --Partial Thromboplastin Time [COAG] --Prothrombin Time [COAG] --Chest X-Ray --Lasix 40mg --Blood culture --Influenza A B --Duplex Lower Extremity Vein Bilateral [US] --Reevaluation Time: 22:05 FINDINGS: Heart and Mediastinum: The heart is enlarged. Aorta is mildly uncoiled. There is hilar prominence most likely vascular. Vascularity: Peripheral vascularity is normal. Lungs and Pleural Spaces: There is mild diffuse increase in interstitial markings. There is more focal opacity at the lung bases right greater than left. There are no definite effusions. There is focal elevation of the left diaphragm. Bony Structures:There are no acute osseous abnormalities. Upper Abdomen: There is a nonspecific gas pattern in the visualized abdomen IMPRESSION: Mild cardiomegaly with uncoiling of the aorta; increased interstitial markings acute versus chronic with basilar opacities atelectasis and/or infiltrate Probnp and ddimer elevated. CT chest ordered to r/o PE. CT chest angio demonstrates PE DW Dr Ludwig, admitting for PMD Dr Osullivan. Pt placed in ICU after DW Dr Lemons. Documented by Sami Javed acting as a scribe for Zuleima Willoughby MD. All medical record entries made by the Scribe were at my direction and personally dictated by me. I have reviewed the chart and agree that the record accurately reflects my personal performance of the history, physical exam, medical decision making, and the department course for this patient. I have also personally directed, reviewed, and agree with the discharge instructions and disposition. Disposition - Clinical Impression Clinical Impression: CHF (congestive heart failure), Pulmonary embolism Counseled Patient/Family Regarding: Studies Performed, Diagnosis - Disposition Disposition Time: 23:00 Condition: CRITICAL
--- NOTE | 2017-12-13 21:45 | RAD ---
EXAM: XR Chest, 1 View EXAM DATE/TIME: 12/13/2017 6:19 PM CLINICAL HISTORY: 57 years old, male; Signs and symptoms; Swelling of limb; Lower extremity, bilateral; Additional info: SOB TECHNIQUE: Frontal view of the chest. COMPARISON: Prior images are not available for review. FINDINGS: Heart and Mediastinum: The heart is enlarged. Aorta is mildly uncoiled. There is hilar prominence most likely vascular. Vascularity: Peripheral vascularity is normal. Lungs and Pleural Spaces: There is mild diffuse increase in interstitial markings. There is more focal opacity at the lung bases right greater than left. There are no definite effusions. There is focal elevation of the left diaphragm. Bony Structures:There are no acute osseous abnormalities. Upper Abdomen: There is a nonspecific gas pattern in the visualized abdomen IMPRESSION: Mild cardiomegaly with uncoiling of the aorta; increased interstitial markings acute versus chronic with basilar opacities atelectasis and/or infiltrate
--- NOTE | 2017-12-13 22:54 | CT ---
EXAM: CT Angiography Chest With Intravenous Contrast EXAM DATE/TIME: 12/13/2017 7:46 PM CLINICAL HISTORY: 57 years old, male; Signs and symptoms; Shortness of breath; Patient HX: See phy. Doc. ; Additional info: SOB. Sent phy. Doc. TECHNIQUE: Axial computed tomographic angiography images of the chest with intravenous contrast using pulmonary embolism protocol. All CT scans at this facility use one or more dose reduction techniques, viz.: automated exposure control; ma/kV adjustment per patient size (including targeted exams where dose is matched to indication; i.e. head); or iterative reconstruction technique. MIP reconstructed images were created and reviewed. Coronal and sagittal reformatted images were created and reviewed. CONTRAST: 95 mL of [id number] administered intravenously. COMPARISON: CR - CHEST PORTABLE 2017-12-13 19:00 FINDINGS: Limitations: Street, motion and patient positioning limit evaluation of the chest. Heart aorta and Pulmonary arteries: The heart is enlarged. There are coronary artery calcifications. Main pulmonary artery is dilated, 4.37 m in diameter. Bolus timing and motion limit evaluation of pulmonary arteries. There is a left lower lobe pulmonary embolus. No other filling defects are identified. Lungs and pleural spaces: Trachea and main bronchi are patent.There is no pneumothorax. There is dependent atelectasis bilaterally. There is airspace disease in the right base. There is a small right effusion. There is a small left pleural effusion which tracks into the fissure. There is atelectasis and patchy airspace disease at the left base. There are atelectatic changes in the left upper lobe. Mediastinum: The esophagus is unremarkable. There are no pathologically enlarged mediastinal nodes. There is left hilar adenopathy. Thyroid: Thyroid is not optimally demonstrated. Bones/joints: There is exaggeration of the thoracic kyphosis. There compression deformities at multiple levels. There degenerative changes. Soft tissues: unremarkable Upper abdomen: Streak and motion limit evaluation of the upper abdomen. The IMPRESSION: Cardiomegaly; dilated main pulmonary artery suggest pulmonary hypertension; left lower lobe filling defect/pulmonary embolus; small bilateral pleural effusions with basilar airspace disease, minimal airspace disease in the left upper lobe Additional nonemergent findings as described above.
[2017-12-13] MEDS ORDERED: Enoxaparin 120 mg Syringe SC STA (23:14)
--- NOTE | 2017-12-13 23:14 | US ---
EXAM: US Duplex Bilateral Lower Extremity Veins EXAM DATE/TIME: 12/13/2017 7:46 PM CLINICAL HISTORY: 57 years old, male; Signs and symptoms; Edema, localized and swelling of limb; Lower extremity, bilateral; Additional info: Leg swelling R/O dvt TECHNIQUE: Real-time ultrasound scan of the veins of the bilateral lower extremities with color Doppler flow, spectral waveform analysis and compression. COMPARISON: There are no prior studies for comparison. FINDINGS: Right deep veins: Common femoral, superficial femoral, popliteal and posterior tibial veins were evaluated. All veins examined are compressible. There are no intraluminal filling defects. There is expected blood flow on Doppler imaging. There is change in waveform with augmentation. Left deep veins: Common femoral, superficial femoral, popliteal and posterior tibial veins were evaluated. All veins examined are compressible. There are no intraluminal filling defects. There is expected blood flow on Doppler imaging. There is change in waveform with augmentation. Soft tissues: There is left calf edema Impression: No deep venous thrombosis in the visualized vascular segments of the lower extremities; left calf edema
--- NOTE | 2017-12-13 23:48 | CP.PCM.CON ---
History of Present Illness - History of Present Illness History of Present Illness: Attending: Toro Ludwig MD PCP: Shi Garber Reason for Consult: Critical care management Chief Complaint: Worsening SOB The patient was seen and examined in the ED HPI: This is a 57 years old homeless, male with Hx of A Fib, CVA, HTN, CAD and CHF, comes with worsening SOB for one hour. This is associated with Productive cough and swelling of both lower extremities. No complaint of chest pain, palpitation, No fever, No nausea nor vomiting. PMH: Atrial Fibrillation not on anticoagulant; CHF systolic Dysfunction EF 20% Cath 07/08/17, COPD, CVA ( left hemiparesis), DVT, Gastritis, HTN, HLD; Peripheral Edema, Pulmonary Embolism, Seizures (last episode 03/2017); CAD ( Cardiac Cath 07/11 Diffuse multivessel CAD); LBBB PSH: Denied SH: Light smoker at present; Quit Alcohol years ago; Homeless; ambulate in wheel chair; FH: States: Unknown Family Hx Allergies: NKDA Medication: Reviewed Review of Systems - Review of Systems Systems not reviewed;Unavailable: Respiratory Distress Review of Systems: Review of system is limited because of severe respiratory distress - Constitutional Constitutional: absent: Chills, Fever - EENT Eyes: absent: Diplopia, Photophobia, Requires Corrective Lenses Ears: absent: Decreased Hearing, Ear Discharge Nose/Mouth/Throat: absent: Epistaxis, Nasal Congestion - Cardiovascular Cardiovascular: Dyspnea, Edema, Leg Edema. absent: Chest Pain, Chest Pain at Rest - Respiratory Respiratory: Dyspnea, Excessive Mucous Production. absent: Stridor - Gastrointestinal Gastrointestinal: absent: Constipation, Diarrhea, Nausea, Vomiting - Genitourinary Genitourinary: absent: Dysuria, Flank Pain, Hematuria - Musculoskeletal Additional comments: Bilateral leg swelling - Integumentary Integumentary: Swelling. absent: Pruritus, Rash, Skin Ulcer, Sores, Striae - Neurological Neurological: absent: Confusion, Focal Weakness - Psychiatric Psychiatric: absent: Anxiety, Depression, Panic Attacks - Endocrine Endocrine: absent: Palpitations, Polydipsia, Polyphagia, Polyuria - Hematologic/Lymphatic Hematologic: absent: Easy Bleeding, Easy Bruising Past Patient History - Infectious Disease Hx of Infectious Diseases: None - Past Medical History & Family History Past Medical History?: Yes - Past Social History Smoking Status: Heavy Smoker > 10 Cigarettes Daily Chewing Tobacco Use: No Cigar Use: No Alcohol: None Drugs: Other (substance abuse) Home Situation {Lives}: Homeless - CARDIAC Hx Atrial Fibrillation: Yes Hx Cardia Arrhythmia: No Hx Congestive Heart Failure: Yes Hx Hypercholesterolemia: Yes Hx Hypertension: Yes Hx Mitral Valve Prolapse: No Hx Pacemaker: No Hx Peripheral Edema: Yes - PULMONARY Hx Bronchitis: No Hx Chronic Obstructive Pulmonary Disease (COPD): Yes Hx Emphysema: No Hx Pneumonia: No Hx Pulmonary Embolism: Yes Hx Sleep Apnea: No - NEUROLOGICAL HX Cerebrovascular Accident: Yes (Left sise weakness) Hx Seizures: Yes (last episode 03/2017) - HEENT Hx HEENT Problems: No - RENAL Hx Chronic Kidney Disease: No - ENDOCRINE/METABOLIC Hx Endocrine Disorders: No - HEMATOLOGICAL/ONCOLOGICAL Hx Blood Disorders: No - INTEGUMENTARY Hx Dermatological Problems: No - MUSCULOSKELETAL/RHEUMATOLOGICAL Hx Falls: Yes - GASTROINTESTINAL Hx Gastritis: Yes - GENITOURINARY/GYNECOLOGICAL Hx Genitourinary Disorders: Yes Hx Incontinence: Yes Hx Urinary Tract Infection: Yes - PSYCHIATRIC Hx Psychophysiologic Disorder: No Hx Substance Use: Yes - SURGICAL HISTORY Hx Surgeries: Yes Hx Cardiac Catheterization: Yes Other/Comment: ivc filter - ANESTHESIA Hx Anesthesia: Yes Hx Anesthesia Reactions: No Hx Malignant Hyperthermia: (pt does not know) Meds Allergies/Adverse Reactions: Allergies Allergy/AdvReac Type Severity Reaction Status Date / Time PORK Allergy Mild URTICARIA Verified 09/12/17 19:41 Physical Exam - Constitutional Appears: In Acute Distress - Head Exam Head Exam: ATRAUMATIC, NORMAL INSPECTION, NORMOCEPHALIC - Eye Exam Eye Exam: EOMI, Normal appearance Pupil Exam: NORMAL ACCOMODATION, PERRL - ENT Exam ENT Exam: Mucous Membranes Moist, Normal Exam, Normal External Ear Exam Additional comments: Excess saliva collection in the mouth - Neck Exam Neck exam: Positive for: Full Rom, Normal Inspection. Negative for: Lymphadenopathy, Tenderness - Respiratory Exam Respiratory Exam: absent: Rhonchi, Wheezes Additional comments: Minimal rales at the left base - Cardiovascular Exam Cardiovascular Exam: REGULAR RHYTHM, RRR, +S1, +S2. absent: Gallop - GI/Abdominal Exam GI & Abdominal Exam: Normal Bowel Sounds, Soft. absent: Mass, Organomegaly, Tenderness - Rectal Exam Rectal Exam: Deferred - Extremities Exam Additional comments: Left lower extremity with 3+ Pitting edema with limited range of motion because of sequelas from CVA. Right lower extremity with 2+ Pitting edema - Back Exam Back exam: NORMAL INSPECTION - Neurological Exam Additional comments: Awake, alert, clear speech when the mouth is empty of sputum, no facial droop, left upper extremity contracted in flexion with motor strength 1/5. left lower extremity motor strength 2/5 - Psychiatric Exam Psychiatric exam: Normal Affect, Normal Mood - Skin Skin Exam: Dry, Intact, Normal Color, Warm Results - Vital Signs Recent Vital Signs: Last Vital Signs Temp 97.5 F L 12/13/17 17:58 Pulse 96 H 12/13/17 17:58 Resp 18 12/13/17 18:48 BP 143/86 12/13/17 23:33 Pulse Ox 98 12/13/17 22:05 - Labs Result Diagrams: 12/13/17 18:43 12/13/17 18:43 Labs: Laboratory Results - last 24 hr 12/13/17 12/13/17 12/13/17 18:20 18:40 18:43 WBC RBC Hgb Hct MCV MCH MCHC RDW Plt Count MPV Neut % (Auto) Lymph % (Auto) Harmon % (Auto) Eos % (Auto) Baso % (Auto) Neut # (Auto) Lymph # (Auto) Harmon # (Auto) Eos # (Auto) Baso # (Auto) PT INR APTT D-Dimer, Quantitative pO2 25 L VBG pH 7.42 VBG pCO2 44 VBG HCO3 26.2 VBG Total CO2 29.9 H VBG O2 Sat (Calc) 34.6 L VBG Base Excess 3.4 H VBG Potassium 3.5 L Sodium 139.0 144 Chloride 110.0 H 105 Glucose 104 Lactate 1.3 FiO2 21.0 Potassium 3.7 Carbon Dioxide 26 Anion Gap 17 BUN 14 Creatinine 0.8 Est GFR ( Amer) > 60 Est GFR (Non-Af Amer) > 60 Random Glucose 101 Calcium 9.2 Phosphorus 2.8 Magnesium 2.1 Total Bilirubin 1.0 AST 41 ALT 60 Alkaline Phosphatase 66 Troponin I 0.0230 NT-Pro-B Natriuret Pep 8460 H Total Protein 6.7 Albumin 3.6 Globulin 3.1 Albumin/Globulin Ratio 1.1 TSH 3rd Generation 0.51 Venous Blood Potassium 3.5 L Alcohol, Quantitative < 10 Influenza Typ A,B (EIA) Blood Type Cancelled Antibody Screen Cancelled BBK History Checked Cancelled 12/13/17 12/13/17 12/13/17 18:43 18:43 18:43 WBC 10.1 RBC 4.90 Hgb 11.4 L Hct 37.2 MCV 76.0 L D MCH 23.4 L MCHC 30.7 L RDW 16.2 H Plt Count 237 MPV 9.5 Neut % (Auto) 73.8 Lymph % (Auto) 18.4 L Harmon % (Auto) 6.1 Eos % (Auto) 0.9 Baso % (Auto) 0.8 Neut # (Auto) 7.4 H Lymph # (Auto) 1.9 Harmon # (Auto) 0.6 Eos # (Auto) 0.1 Baso # (Auto) 0.1 PT 12.4 INR 1.1 APTT 25.5 L D-Dimer, Quantitative 752 H pO2 VBG pH VBG pCO2 VBG HCO3 VBG Total CO2 VBG O2 Sat (Calc) VBG Base Excess VBG Potassium Sodium Chloride Glucose Lactate FiO2 Potassium Carbon Dioxide Anion Gap BUN Creatinine Est GFR ( Amer) Est GFR (Non-Af Amer) Random Glucose Calcium Phosphorus Magnesium Total Bilirubin AST ALT Alkaline Phosphatase Troponin I NT-Pro-B Natriuret Pep Total Protein Albumin Globulin Albumin/Globulin Ratio TSH 3rd Generation Venous Blood Potassium Alcohol, Quantitative Influenza Typ A,B (EIA) Negative for flu a/b Blood Type Antibody Screen BBK History Checked - EKG Data EKG comments: Wide complex regular rhythm - Impressions Impression: Junctional Rhythm 65/min LVH - Imaging and Cardiology Chest x-ray Status: Image reviewed by me, Report reviewed by me Additional comment: EXAM: XR Chest, 1 View EXAM DATE/TIME: 12/13/2017 6:19 PM FINDINGS: Heart and Mediastinum: The heart is enlarged. Aorta is mildly uncoiled. There is hilar prominence most likely vascular. Vascularity: Peripheral vascularity is normal. Lungs and Pleural Spaces: There is mild diffuse increase in interstitial markings. There is more focal opacity at the lung bases right greater than left. There are no definite effusions. There is focal elevation of the left diaphragm. Bony Structures:There are no acute osseous abnormalities. Upper Abdomen: There is a nonspecific gas pattern in the visualized abdomen IMPRESSION: Mild cardiomegaly with uncoiling of the aorta; increased interstitial markings acute versus chronic with basilar opacities atelectasis and/or infiltrate CT scan - chest Status: Image reviewed by me, Report reviewed by me Additional comment: EXAM: CT Angiography Chest With Intravenous Contrast EXAM DATE/TIME: 12/13/2017 7:46 PM FINDINGS: Limitations: Street, motion and patient positioning limit evaluation of the chest. Heart aorta and Pulmonary arteries: The heart is enlarged. There are coronary artery calcifications. Main pulmonary artery is dilated, 4.37 m in diameter. Bolus timing and motion limit evaluation of pulmonary arteries. There is a left lower lobe pulmonary embolus. No other filling defects are identified. Lungs and pleural spaces: Trachea and main bronchi are patent.There is no pneumothorax. There is dependent atelectasis bilaterally. There is airspace disease in the right base. There is a small right effusion. There is a small left pleural effusion which tracks into the fissure. There is atelectasis and patchy airspace disease at the left base. There are atelectatic changes in the left upper lobe. Mediastinum: The esophagus is unremarkable. There are no pathologically enlarged mediastinal nodes. There is left hilar adenopathy. Thyroid: Thyroid is not optimally demonstrated. Bones/joints: There is exaggeration of the thoracic kyphosis. There compression deformities at multiple levels. There degenerative changes. Soft tissues: unremarkable Upper abdomen: Streak and motion limit evaluation of the upper abdomen. The IMPRESSION: Cardiomegaly; dilated main pulmonary artery suggest pulmonary hypertension; left lower lobe filling defect/pulmonary embolus; small bilateral pleural effusions with basilar airspace disease, minimal airspace disease in the left upper lobe Additional nonemergent findings as described above. Duplex US Lower extremities Additional comment: EXAM: US Duplex Bilateral Lower Extremity Veins EXAM DATE/TIME: 12/13/2017 7:46 PM FINDINGS: Right deep veins: Common femoral, superficial femoral, popliteal and posterior tibial veins were evaluated. All veins examined are compressible. There are no intraluminal filling defects. There is expected blood flow on Doppler imaging. There is change in waveform with augmentation. Left deep veins: Common femoral, superficial femoral, popliteal and posterior tibial veins were evaluated. All veins examined are compressible. There are no intraluminal filling defects. There is expected blood flow on Doppler imaging. There is change in waveform with augmentation. Soft tissues: There is left calf edema Impression: No deep venous thrombosis in the visualized vascular segments of the lower extremities; left calf edema Assessment & Plan - Assessment and Plan (Free Text) Assessment: #. Acute Systolic CHF #. Pulmonary Embolism #. Pulmonary HTN #. CAD diffuse multi vessel #. Hx of CVA Plan: 57 years old homeless, male with Hx of A Fib, CVA, HTN, CAD and CHF, comes with worsening SOB for one hour. This is associated with Productive cough and swelling of both lower extremities. #. Acute Systolic CHF - Consult Dr Blanc cardiology - Follow Troponin - IV lasix Q12 - Coreg - Zestril #. Pulmonary Embolism - lovenox 1mg/kg Q12H #. Pulmonary HTN - O2 via N/C at 3L/Min #. CAD diffuse multi vessel - ASA -Coreg - Statin #. Hx of CVA - ASA - Statin #. Anemia. Probably Iron Deficiency - Iron Panel - Follow HB #. DVT prophylaxis: Patient on Lovenox #. Code Status: Full - Date & Time Date: 12/13/17 Time: 23:48
[2017-12-14 02:36] LABS: ABG ALLEN TEST YES; ARTERIAL BLOOD GAS HCO3 27.5 mmol/L (21-28); ARTERIAL BLOOD GAS HEMOGLOBIN 10.6 g/dL (11.7-17.4); ARTERIAL BLOOD GAS O2 CAPACITY 14.1 mL/dL (16-24); ARTERIAL BLOOD GAS O2 CONTENT 13.9 ML/dL (15-23); ARTERIAL BLOOD GAS O2 SAT 98.6 % (95-98); ARTERIAL BLOOD GAS PCO2 35 mm/Hg (35-45); ARTERIAL BLOOD GAS PH 7.49 (7.35-7.45); ARTERIAL BLOOD GAS PO2 68 mm/Hg (80-100); ARTERIAL BLOOD GAS TCO2 27.8 mmol/L (22-28)
[2017-12-14 04:49] LABS: BASO # 0.1 K/uL (0.0-0.2); BASO % 0.5 % (0.0-2.0); EOS # 0.1 K/uL (0.0-0.7); EOS % 0.7 % (0.0-4.0); HEMOGLOBIN 10.2 g/dL (12.0-18.0); LYMPH # 2.1 K/uL (1.0-4.3); LYMPH % 21.5 % (20.0-40.0); MEAN CELL VOLUME 76.1 fl (80.0-94.0); MEAN CORPUSCULAR HEMOGLOBIN 23.5 pg (27.0-31.0); MEAN CORPUSCULAR HGB CONC 30.8 g/dL (33.0-37.0); MEAN PLATELET VOLUME 9.1 fl (7.2-11.7); MONO # 0.6 K/uL (0.0-0.8); MONO % 6.4 % (0.0-10.0); NEUT # 7.1 K/uL (1.8-7.0); NEUT % 70.9 % (50.0-75.0); RBC 4.36 Mil/uL (4.40-5.90); RED CELL DISTRIBUTION WIDTH 16.2 % (11.5-14.5)
[2017-12-14 05:10] LABS: IRON 36 ug/dL (49-181)
[2017-12-14 05:19] LABS: % IRON SATURATION 13 % (20-55); TOTAL IRON BINDING CAPACITY 274 ug/dL (250-450)
[2017-12-14] MEDS: Enoxaparin 120 mg Syringe SC SCH ×2 (09:16→21:41)
--- NOTE | 2017-12-14 11:44 | CP.CCUPN ---
<Anali Heck - Last Filed: 12/14/17 15:47> CCU Subjective - Physician Review Subjective (Free Text): 12/14/17 57 years old homeless, male with extensive PMHx including A Fib (not on anticoagulation), CVA ( left sided hemiparesis), HTN, CAD and Systolic CHF (EF 20 %), HTN, Pulmonary embolism, seizures(as per records last episode on 03/2017) who presented c/o worsening SOB, associated with productive cough, and swelling of both legs admitted for Pulmonary embolism and CHF exacerbation. Patient was seen and examined with site surveyor attending during rounds. Patient is alert, awake, and oriented x 3. Denies CT, SOB, N/V, palpitations, dizziness at this eval. Reports two large nonbloody diarrheas since admission, associated with diffuse abd pain. Denies chills, urinary symptoms. Critical Care Time Spent (in minutes): 45 CCU Objective - Vital Signs / Intake & Output Vital Signs (Last 4 hours): Vital Signs Temp Pulse Pulse Resp BP Pulse Ox 12/14/17 09:17 69 147/96 H 12/14/17 09:16 147/96 H 12/14/17 09:15 69 147/98 H 12/14/17 08:17 80 20 125/69 99 12/14/17 08:13 81 20 12/14/17 08:00 98.6 F 66 20 138/84 95 Intake and Output (Last 8hrs): Intake & Output 12/13/17 12/14/17 12/14/17 22:59 06:59 14:59 Weight 250 lb - Physical Exam Head: Positive for: Atraumatic, Normocephalic Pupils: Positive for: PERRL Mouth: Positive for: Moist Mucous Membranes Neck: Positive for: Normal Range of Motion Cardiovascular: Positive for: Regular Rate and Rhythm, Normal S1, S2 Abdomen: Positive for: Tenderness (mild diffuse tenderness to palpation), Normal Bowel Sounds. Negative for: Distention, Rebound, Guarding Upper Extremity: Negative for: Edema Lower Extremity: Positive for: Edema (bilateral) Skin: Positive for: Warm, Dry Psychiatric: Positive for: Alert, Oriented x 3 - Medications Active Medications: Active Medications Generic Name Dose Route Start Last Admin Trade Name Freq PRN Reason Stop Dose Admin Aspirin 81 mg 12/14/17 09:00 12/14/17 09:16 Ecotrin PO 81 mg DAILY ENOC Administration Atorvastatin Calcium 20 mg 12/14/17 09:00 12/14/17 09:16 Lipitor PO 20 mg DAILY ENOC Administration Carvedilol 6.25 mg 12/14/17 09:00 12/14/17 09:15 Coreg PO 6.25 mg BID ENOC Administration Enoxaparin Sodium 110 mg 12/14/17 09:00 12/14/17 09:16 Lovenox SC 110 mg Q12 ENOC Administration Protocol Furosemide 40 mg 12/14/17 09:00 12/14/17 09:16 Lasix PO 40 mg BID ENOC Administration Levetiracetam 750 mg 12/14/17 09:00 12/14/17 09:16 Keppra PO 750 mg BID ENOC Administration Lisinopril 20 mg 12/14/17 09:00 12/14/17 09:17 Zestril PO 20 mg DAILY ENOC Administration - Patient Studies Lab Studies: Lab Studies 12/14/17 12/14/17 12/14/17 Range/Units 11:11 04:42 04:42 WBC (4.8-10.8) K/uL RBC (4.40-5.90) Mil/uL Hgb (12.0-18.0) g/dL Hct (35.0-51.0) % MCV (80.0-94.0) fl MCH (27.0-31.0) pg MCHC (33.0-37.0) g/dL RDW (11.5-14.5) % Plt Count (130-400) K/uL MPV (7.2-11.7) fl Neut % (Auto) (50.0-75.0) % Lymph % (Auto) (20.0-40.0) % [place] % (Auto) (0.0-10.0) % Eos % (Auto) (0.0-4.0) % Baso % (Auto) (0.0-2.0) % Neut # (Auto) (1.8-7.0) K/uL Lymph # (Auto) (1.0-4.3) K/uL [place] # (Auto) (0.0-0.8) K/uL Eos # (Auto) (0.0-0.7) K/uL Baso # (Auto) (0.0-0.2) K/uL PT (9.8-13.1) Seconds INR (0.9-1.2) APTT (25.6-37.1) Seconds D-Dimer, Quantitative (0-230) ng/mlDDU pCO2 (35-45) mm/Hg pO2 (30-55) mm/Hg HCO3 (21-28) mmol/L ABG pH (7.35-7.45) ABG Total CO2 (22-28) mmol/L ABG O2 Saturation (95-98) % ABG O2 Content (15-23) ML/dL ABG Base Excess (-2.0-3.0) mmol/L ABG Hemoglobin (11.7-17.4) g/dL ABG Carboxyhemoglobin (0.5-1.5) % POC ABG HHb (Measured) (0.0-5.0) % ABG Methemoglobin (0.0-3.0) % ABG O2 Capacity (16-24) mL/dL Tristen Test VBG pH (7.32-7.43) VBG pCO2 (40-60) mmHg VBG HCO3 mmol/L VBG Total CO2 (22-28) mmol/L VBG O2 Sat (Calc) (40-65) % VBG Base Excess (0.0-2.0) mmol/L VBG Potassium (3.6-5.2) mmol/L A-a O2 Difference mm/Hg Hgb O2 Saturation (95.0-98.0) % Sodium (132-148) mmol/L Chloride (98-107) mmol/L Glucose (75-110) mg/dL Lactate (0.7-2.1) mmol/L FiO2 % Potassium (3.6-5.0) MMOL/L Carbon Dioxide (22-30) mmol/L Anion Gap (10-20) BUN (9-20) mg/dl Creatinine (0.8-1.5) mg/dl Est GFR ( Amer) Est GFR (Non-Af Amer) POC Glucose (mg/dL) 103 (65-110) mg/dL Random Glucose (75-110) mg/dL Calcium (8.4-10.2) mg/dL Phosphorus (2.5-4.5) mg/dl Magnesium (1.6-2.3) MG/DL Iron 36 L (49-181) ug/dL TIBC 274 (250-450) ug/dL % Saturation 13 L (20-55) % Total Bilirubin (0.2-1.3) mg/dl AST (17-59) U/L ALT (21-72) U/L Alkaline Phosphatase (38-126) U/L Troponin I 0.0200 (0.00-0.120) ng/mL NT-Pro-B Natriuret Pep (0-900) pg/ml Total Protein (6.3-8.2) G/DL Albumin (3.5-5.0) g/dL Globulin (2.2-3.9) gm/dL Albumin/Globulin Ratio (1.0-2.1) TSH 3rd Generation (0.46-4.68) mIU/ML Venous Blood Potassium (3.6-5.2) mmol/L Alcohol, Quantitative (0-10) mg/dl Influenza Typ A,B (EIA) (NEGATIVE) Blood Type Antibody Screen BBK History Checked 12/14/17 12/14/17 12/13/17 Range/Units 04:42 02:29 18:43 WBC 10.0 (4.8-10.8) K/uL RBC 4.36 L (4.40-5.90) Mil/uL Hgb 10.2 L (12.0-18.0) g/dL Hct 33.2 L (35.0-51.0) % MCV 76.1 L (80.0-94.0) fl MCH 23.5 L (27.0-31.0) pg MCHC 30.8 L (33.0-37.0) g/dL RDW 16.2 H (11.5-14.5) % Plt Count 209 (130-400) K/uL MPV 9.1 (7.2-11.7) fl Neut % (Auto) 70.9 (50.0-75.0) % Lymph % (Auto) 21.5 (20.0-40.0) % [place] % (Auto) 6.4 (0.0-10.0) % Eos % (Auto) 0.7 (0.0-4.0) % Baso % (Auto) 0.5 (0.0-2.0) % Neut # (Auto) 7.1 H (1.8-7.0) K/uL Lymph # (Auto) 2.1 (1.0-4.3) K/uL [place] # (Auto) 0.6 (0.0-0.8) K/uL Eos # (Auto) 0.1 (0.0-0.7) K/uL Baso # (Auto) 0.1 (0.0-0.2) K/uL PT (9.8-13.1) Seconds INR (0.9-1.2) APTT (25.6-37.1) Seconds D-Dimer, Quantitative (0-230) ng/mlDDU pCO2 35 (35-45) mm/Hg pO2 68 L (30-55) mm/Hg HCO3 27.5 (21-28) mmol/L ABG pH 7.49 H (7.35-7.45) ABG Total CO2 27.8 (22-28) mmol/L ABG O2 Saturation 98.6 H (95-98) % ABG O2 Content 13.9 L (15-23) ML/dL ABG Base Excess 3.4 H (-2.0-3.0) mmol/L ABG Hemoglobin 10.6 L (11.7-17.4) g/dL ABG Carboxyhemoglobin 3.8 H (0.5-1.5) % POC ABG HHb (Measured) 1.3 (0.0-5.0) % ABG Methemoglobin 2.0 (0.0-3.0) % ABG O2 Capacity 14.1 L (16-24) mL/dL Tristen Test Yes VBG pH (7.32-7.43) VBG pCO2 (40-60) mmHg VBG HCO3 mmol/L VBG Total CO2 (22-28) mmol/L VBG O2 Sat (Calc) (40-65) % VBG Base Excess (0.0-2.0) mmol/L VBG Potassium (3.6-5.2) mmol/L A-a O2 Difference 38.0 mm/Hg Hgb O2 Saturation 92.9 L (95.0-98.0) % Sodium (132-148) mmol/L Chloride (98-107) mmol/L Glucose (75-110) mg/dL Lactate (0.7-2.1) mmol/L FiO2 21.0 % Potassium (3.6-5.0) MMOL/L Carbon Dioxide (22-30) mmol/L Anion Gap (10-20) BUN (9-20) mg/dl Creatinine (0.8-1.5) mg/dl Est GFR ( Amer) Est GFR (Non-Af Amer) POC Glucose (mg/dL) (65-110) mg/dL Random Glucose (75-110) mg/dL Calcium (8.4-10.2) mg/dL Phosphorus (2.5-4.5) mg/dl Magnesium (1.6-2.3) MG/DL Iron (49-181) ug/dL TIBC (250-450) ug/dL % Saturation (20-55) % Total Bilirubin (0.2-1.3) mg/dl AST (17-59) U/L ALT (21-72) U/L Alkaline Phosphatase (38-126) U/L Troponin I (0.00-0.120) ng/mL NT-Pro-B Natriuret Pep (0-900) pg/ml Total Protein (6.3-8.2) G/DL Albumin (3.5-5.0) g/dL Globulin (2.2-3.9) gm/dL Albumin/Globulin Ratio (1.0-2.1) TSH 3rd Generation (0.46-4.68) mIU/ML Venous Blood Potassium (3.6-5.2) mmol/L Alcohol, Quantitative (0-10) mg/dl Influenza Typ A,B (EIA) Negative for flu a/b (NEGATIVE) Blood Type Antibody Screen BBK History Checked 12/13/17 12/13/17 12/13/17 Range/Units 18:43 18:43 18:43 WBC 10.1 (4.8-10.8) K/uL RBC 4.90 (4.40-5.90) Mil/uL Hgb 11.4 L (12.0-18.0) g/dL Hct 37.2 (35.0-51.0) % MCV 76.0 L D (80.0-94.0) fl MCH 23.4 L (27.0-31.0) pg MCHC 30.7 L (33.0-37.0) g/dL RDW 16.2 H (11.5-14.5) % Plt Count 237 (130-400) K/uL MPV 9.5 (7.2-11.7) fl Neut % (Auto) 73.8 (50.0-75.0) % Lymph % (Auto) 18.4 L (20.0-40.0) % [place] % (Auto) 6.1 (0.0-10.0) % Eos % (Auto) 0.9 (0.0-4.0) % Baso % (Auto) 0.8 (0.0-2.0) % Neut # (Auto) 7.4 H (1.8-7.0) K/uL Lymph # (Auto) 1.9 (1.0-4.3) K/uL [place] # (Auto) 0.6 (0.0-0.8) K/uL Eos # (Auto) 0.1 (0.0-0.7) K/uL Baso # (Auto) 0.1 (0.0-0.2) K/uL PT 12.4 (9.8-13.1) Seconds INR 1.1 (0.9-1.2) APTT 25.5 L (25.6-37.1) Seconds D-Dimer, Quantitative 752 H (0-230) ng/mlDDU pCO2 (35-45) mm/Hg pO2 (30-55) mm/Hg HCO3 (21-28) mmol/L ABG pH (7.35-7.45) ABG Total CO2 (22-28) mmol/L ABG O2 Saturation (95-98) % ABG O2 Content (15-23) ML/dL ABG Base Excess (-2.0-3.0) mmol/L ABG Hemoglobin (11.7-17.4) g/dL ABG Carboxyhemoglobin (0.5-1.5) % POC ABG HHb (Measured) (0.0-5.0) % ABG Methemoglobin (0.0-3.0) % ABG O2 Capacity (16-24) mL/dL Tristen Test VBG pH (7.32-7.43) VBG pCO2 (40-60) mmHg VBG HCO3 mmol/L VBG Total CO2 (22-28) mmol/L VBG O2 Sat (Calc) (40-65) % VBG Base Excess (0.0-2.0) mmol/L VBG Potassium (3.6-5.2) mmol/L A-a O2 Difference mm/Hg Hgb O2 Saturation (95.0-98.0) % Sodium 144 (132-148) mmol/L Chloride 105 (98-107) mmol/L Glucose (75-110) mg/dL Lactate (0.7-2.1) mmol/L FiO2 % Potassium 3.7 (3.6-5.0) MMOL/L Carbon Dioxide 26 (22-30) mmol/L Anion Gap 17 (10-20) BUN 14 (9-20) mg/dl Creatinine 0.8 (0.8-1.5) mg/dl Est GFR ( Amer) > 60 Est GFR (Non-Af Amer) > 60 POC Glucose (mg/dL) (65-110) mg/dL Random Glucose 101 (75-110) mg/dL Calcium 9.2 (8.4-10.2) mg/dL Phosphorus 2.8 (2.5-4.5) mg/dl Magnesium 2.1 (1.6-2.3) MG/DL Iron (49-181) ug/dL TIBC (250-450) ug/dL % Saturation (20-55) % Total Bilirubin 1.0 (0.2-1.3) mg/dl AST 41 (17-59) U/L ALT 60 (21-72) U/L Alkaline Phosphatase 66 (38-126) U/L Troponin I 0.0230 (0.00-0.120) ng/mL NT-Pro-B Natriuret Pep 8460 H (0-900) pg/ml Total Protein 6.7 (6.3-8.2) G/DL Albumin 3.6 (3.5-5.0) g/dL Globulin 3.1 (2.2-3.9) gm/dL Albumin/Globulin Ratio 1.1 (1.0-2.1) TSH 3rd Generation 0.51 (0.46-4.68) mIU/ML Venous Blood Potassium (3.6-5.2) mmol/L Alcohol, Quantitative < 10 (0-10) mg/dl Influenza Typ A,B (EIA) (NEGATIVE) Blood Type Antibody Screen BBK History Checked 12/13/17 12/13/17 Range/Units 18:40 18:20 WBC (4.8-10.8) K/uL RBC (4.40-5.90) Mil/uL Hgb (12.0-18.0) g/dL Hct (35.0-51.0) % MCV (80.0-94.0) fl MCH (27.0-31.0) pg MCHC (33.0-37.0) g/dL RDW (11.5-14.5) % Plt Count (130-400) K/uL MPV (7.2-11.7) fl Neut % (Auto) (50.0-75.0) % Lymph % (Auto) (20.0-40.0) % [place] % (Auto) (0.0-10.0) % Eos % (Auto) (0.0-4.0) % Baso % (Auto) (0.0-2.0) % Neut # (Auto) (1.8-7.0) K/uL Lymph # (Auto) (1.0-4.3) K/uL [place] # (Auto) (0.0-0.8) K/uL Eos # (Auto) (0.0-0.7) K/uL Baso # (Auto) (0.0-0.2) K/uL PT (9.8-13.1) Seconds INR (0.9-1.2) APTT (25.6-37.1) Seconds D-Dimer, Quantitative (0-230) ng/mlDDU pCO2 (35-45) mm/Hg pO2 25 L (30-55) mm/Hg HCO3 (21-28) mmol/L ABG pH (7.35-7.45) ABG Total CO2 (22-28) mmol/L ABG O2 Saturation (95-98) % ABG O2 Content (15-23) ML/dL ABG Base Excess (-2.0-3.0) mmol/L ABG Hemoglobin (11.7-17.4) g/dL ABG Carboxyhemoglobin (0.5-1.5) % POC ABG HHb (Measured) (0.0-5.0) % ABG Methemoglobin (0.0-3.0) % ABG O2 Capacity (16-24) mL/dL Tristen Test VBG pH 7.42 (7.32-7.43) VBG pCO2 44 (40-60) mmHg VBG HCO3 26.2 mmol/L VBG Total CO2 29.9 H (22-28) mmol/L VBG O2 Sat (Calc) 34.6 L (40-65) % VBG Base Excess 3.4 H (0.0-2.0) mmol/L VBG Potassium 3.5 L (3.6-5.2) mmol/L A-a O2 Difference mm/Hg Hgb O2 Saturation (95.0-98.0) % Sodium 139.0 (132-148) mmol/L Chloride 110.0 H (98-107) mmol/L Glucose 104 (75-110) mg/dL Lactate 1.3 (0.7-2.1) mmol/L FiO2 21.0 % Potassium (3.6-5.0) MMOL/L Carbon Dioxide (22-30) mmol/L Anion Gap (10-20) BUN (9-20) mg/dl Creatinine (0.8-1.5) mg/dl Est GFR ( Amer) Est GFR (Non-Af Amer) POC Glucose (mg/dL) (65-110) mg/dL Random Glucose (75-110) mg/dL Calcium (8.4-10.2) mg/dL Phosphorus (2.5-4.5) mg/dl Magnesium (1.6-2.3) MG/DL Iron (49-181) ug/dL TIBC (250-450) ug/dL % Saturation (20-55) % Total Bilirubin (0.2-1.3) mg/dl AST (17-59) U/L ALT (21-72) U/L Alkaline Phosphatase (38-126) U/L Troponin I (0.00-0.120) ng/mL NT-Pro-B Natriuret Pep (0-900) pg/ml Total Protein (6.3-8.2) G/DL Albumin (3.5-5.0) g/dL Globulin (2.2-3.9) gm/dL Albumin/Globulin Ratio (1.0-2.1) TSH 3rd Generation (0.46-4.68) mIU/ML Venous Blood Potassium 3.5 L (3.6-5.2) mmol/L Alcohol, Quantitative (0-10) mg/dl Influenza Typ A,B (EIA) (NEGATIVE) Blood Type Cancelled Antibody Screen Cancelled BBK History Checked Cancelled Laboratory Results - last 24 hr 12/13/17 12/13/17 12/13/17 18:20 18:40 18:43 WBC RBC Hgb Hct MCV MCH MCHC RDW Plt Count MPV Neut % (Auto) Lymph % (Auto) [place] % (Auto) Eos % (Auto) Baso % (Auto) Neut # (Auto) Lymph # (Auto) [place] # (Auto) Eos # (Auto) Baso # (Auto) PT INR APTT D-Dimer, Quantitative pCO2 pO2 25 L HCO3 ABG pH ABG Total CO2 ABG O2 Saturation ABG O2 Content ABG Base Excess ABG Hemoglobin ABG Carboxyhemoglobin POC ABG HHb (Measured) ABG Methemoglobin ABG O2 Capacity Tristen Test VBG pH 7.42 VBG pCO2 44 VBG HCO3 26.2 VBG Total CO2 29.9 H VBG O2 Sat (Calc) 34.6 L VBG Base Excess 3.4 H VBG Potassium 3.5 L A-a O2 Difference Hgb O2 Saturation Sodium 139.0 144 Chloride 110.0 H 105 Glucose 104 Lactate 1.3 FiO2 21.0 Potassium 3.7 Carbon Dioxide 26 Anion Gap 17 BUN 14 Creatinine 0.8 Est GFR ( Amer) > 60 Est GFR (Non-Af Amer) > 60 POC Glucose (mg/dL) Random Glucose 101 Calcium 9.2 Phosphorus 2.8 Magnesium 2.1 Iron TIBC % Saturation Total Bilirubin 1.0 AST 41 ALT 60 Alkaline Phosphatase 66 Troponin I 0.0230 NT-Pro-B Natriuret Pep 8460 H Total Protein 6.7 Albumin 3.6 Globulin 3.1 Albumin/Globulin Ratio 1.1 TSH 3rd Generation 0.51 Venous Blood Potassium 3.5 L Alcohol, Quantitative < 10 Influenza Typ A,B (EIA) Blood Type Cancelled Antibody Screen Cancelled BBK History Checked Cancelled 12/13/17 12/13/17 12/13/17 18:43 18:43 18:43 WBC 10.1 RBC 4.90 Hgb 11.4 L Hct 37.2 MCV 76.0 L D MCH 23.4 L MCHC 30.7 L RDW 16.2 H Plt Count 237 MPV 9.5 Neut % (Auto) 73.8 Lymph % (Auto) 18.4 L [place] % (Auto) 6.1 Eos % (Auto) 0.9 Baso % (Auto) 0.8 Neut # (Auto) 7.4 H Lymph # (Auto) 1.9 [place] # (Auto) 0.6 Eos # (Auto) 0.1 Baso # (Auto) 0.1 PT 12.4 INR 1.1 APTT 25.5 L D-Dimer, Quantitative 752 H pCO2 pO2 HCO3 ABG pH ABG Total CO2 ABG O2 Saturation ABG O2 Content ABG Base Excess ABG Hemoglobin ABG Carboxyhemoglobin POC ABG HHb (Measured) ABG Methemoglobin ABG O2 Capacity Tristen Test VBG pH VBG pCO2 VBG HCO3 VBG Total CO2 VBG O2 Sat (Calc) VBG Base Excess VBG Potassium A-a O2 Difference Hgb O2 Saturation Sodium Chloride Glucose Lactate FiO2 Potassium Carbon Dioxide Anion Gap BUN Creatinine Est GFR ( Amer) Est GFR (Non-Af Amer) POC Glucose (mg/dL) Random Glucose Calcium Phosphorus Magnesium Iron TIBC % Saturation Total Bilirubin AST ALT Alkaline Phosphatase Troponin I NT-Pro-B Natriuret Pep Total Protein Albumin Globulin Albumin/Globulin Ratio TSH 3rd Generation Venous Blood Potassium Alcohol, Quantitative Influenza Typ A,B (EIA) Negative for flu a/b Blood Type Antibody Screen BBK History Checked 12/14/17 12/14/17 12/14/17 02:29 04:42 04:42 WBC 10.0 RBC 4.36 L Hgb 10.2 L Hct 33.2 L MCV 76.1 L MCH 23.5 L MCHC 30.8 L RDW 16.2 H Plt Count 209 MPV 9.1 Neut % (Auto) 70.9 Lymph % (Auto) 21.5 [place] % (Auto) 6.4 Eos % (Auto) 0.7 Baso % (Auto) 0.5 Neut # (Auto) 7.1 H Lymph # (Auto) 2.1 [place] # (Auto) 0.6 Eos # (Auto) 0.1 Baso # (Auto) 0.1 PT INR APTT D-Dimer, Quantitative pCO2 35 pO2 68 L HCO3 27.5 ABG pH 7.49 H ABG Total CO2 27.8 ABG O2 Saturation 98.6 H ABG O2 Content 13.9 L ABG Base Excess 3.4 H ABG Hemoglobin 10.6 L ABG Carboxyhemoglobin 3.8 H POC ABG HHb (Measured) 1.3 ABG Methemoglobin 2.0 ABG O2 Capacity 14.1 L Tristen Test Yes VBG pH VBG pCO2 VBG HCO3 VBG Total CO2 VBG O2 Sat (Calc) VBG Base Excess VBG Potassium A-a O2 Difference 38.0 Hgb O2 Saturation 92.9 L Sodium Chloride Glucose Lactate FiO2 21.0 Potassium Carbon Dioxide Anion Gap BUN Creatinine Est GFR ( Amer) Est GFR (Non-Af Amer) POC Glucose (mg/dL) Random Glucose Calcium Phosphorus Magnesium Iron 36 L TIBC 274 % Saturation 13 L Total Bilirubin AST ALT Alkaline Phosphatase Troponin I NT-Pro-B Natriuret Pep Total Protein Albumin Globulin Albumin/Globulin Ratio TSH 3rd Generation Venous Blood Potassium Alcohol, Quantitative Influenza Typ A,B (EIA) Blood Type Antibody Screen BBK History Checked 12/14/17 12/14/17 04:42 11:11 WBC RBC Hgb Hct MCV MCH MCHC RDW Plt Count MPV Neut % (Auto) Lymph % (Auto) [place] % (Auto) Eos % (Auto) Baso % (Auto) Neut # (Auto) Lymph # (Auto) [place] # (Auto) Eos # (Auto) Baso # (Auto) PT INR APTT D-Dimer, Quantitative pCO2 pO2 HCO3 ABG pH ABG Total CO2 ABG O2 Saturation ABG O2 Content ABG Base Excess ABG Hemoglobin ABG Carboxyhemoglobin POC ABG HHb (Measured) ABG Methemoglobin ABG O2 Capacity Tristen Test VBG pH VBG pCO2 VBG HCO3 VBG Total CO2 VBG O2 Sat (Calc) VBG Base Excess VBG Potassium A-a O2 Difference Hgb O2 Saturation Sodium Chloride Glucose Lactate FiO2 Potassium Carbon Dioxide Anion Gap BUN Creatinine Est GFR ( Amer) Est GFR (Non-Af Amer) POC Glucose (mg/dL) 103 Random Glucose Calcium Phosphorus Magnesium Iron TIBC % Saturation Total Bilirubin AST ALT Alkaline Phosphatase Troponin I 0.0200 NT-Pro-B Natriuret Pep Total Protein Albumin Globulin Albumin/Globulin Ratio TSH 3rd Generation Venous Blood Potassium Alcohol, Quantitative Influenza Typ A,B (EIA) Blood Type Antibody Screen BBK History Checked EKG/Cardiology Studies: Cardiology / EKG Studies 12/13/17 18:19 ELECTROCARDIOGRAM Stat Comment: Mode Of Transportation: Reason For Exam: sob Isolation: Contact Review of Systems - Review of Systems All systems: reviewed and no additional remarkable complaints except (as per HPI ) Critical Care Progress Note - Nutrition Nutrition: Nutrition Category Date Time Status Heart Healthy Diet [DIET] Diets 12/14/17 Breakfast Active Assessment/Plan - Assessment and Plan (Free Text) Assessment: 57 years old homeless, male with extensive PMHx admitted for pulmonary embolism and Systolic CHF exacerbation. Plan: Pulmonary embolism -hemodinamically stable -continuous Cardiac monitoring in ICU -on Therapeutic Lovenox 1 mg/kg Q12 -GFR> 60, BUN/Cr wnl -Lower extremities dupplex US on 12/13/17 reported as no evidence of DVT -CT chest on admission reported a left lower lobe filling defect -h/o DVT s/p 6 months with anticoagulation after CVA episode 5 years ago Systolic CHF -in exacerbation -dyspnea, edema in LE -On furosemide 40 mg PO BID -On carvedilol 6.25 mg PO BID -on lisinopril 20 mg PO QD -elevated pro-BNP 8460, ( was wnl on 07/06/18) -F/u Echo results -heart healthy diet -CXR reported as increased interstitial marking acute vs chronic with basilar opacities atelectasis and/or infiltrates -Cardiology on consult, Dr. 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 H/O CAD -troponin I x 3 wnl -c/w coreg 6.25 mg PO BID -c/w aspirin 81 QD -c/w statin Lipitor 20 mg QD -heart healthy diet H/O Seizures -controlled on keppra -On keppra 750 mg PO BID DVT prophylaxis On therapeutic Lovenox for PE - Date & Time Date: 12/14/17 Time: 09:00 <Norman Velazquez M - Last Filed: 12/14/17 15:55> CCU Objective - Vital Signs / Intake & Output Vital Signs (Last 4 hours): Vital Signs Temp Pulse Resp BP Pulse Ox 12/14/17 12:48 83 22 131/88 99 12/14/17 12:00 99.3 F 73 58 H 131/88 100 Intake and Output (Last 8hrs): Intake & Output 12/14/17 12/14/17 12/14/17 06:59 14:59 22:59 Output Total 1 Balance -1 Output: Stool 1 Other: # Bowel Movements 1 - Medications Active Medications: Active Medications Generic Name Dose Route Start Last Admin Trade Name Freq PRN Reason Stop Dose Admin Aspirin 81 mg 12/14/17 09:00 12/14/17 09:16 Ecotrin PO 81 mg DAILY ENOC Administration Atorvastatin Calcium 20 mg 12/14/17 09:00 12/14/17 09:16 Lipitor PO 20 mg DAILY ENOC Administration Carvedilol 6.25 mg 12/14/17 09:00 12/14/17 09:15 Coreg PO 6.25 mg BID ENOC Administration Enoxaparin Sodium 110 mg 12/14/17 09:00 12/14/17 09:16 Lovenox SC 110 mg Q12 ENOC Administration Protocol Furosemide 40 mg 12/14/17 09:00 12/14/17 09:16 Lasix PO 40 mg BID ENOC Administration Levetiracetam 750 mg 12/14/17 09:00 12/14/17 09:16 Keppra PO 750 mg BID ENOC Administration Lisinopril 20 mg 12/14/17 09:00 12/14/17 09:17 Zestril PO 20 mg DAILY ENOC Administration - Patient Studies Lab Studies: Lab Studies 12/14/17 12/14/17 12/14/17 Range/Units 11:11 11:07 04:42 WBC (4.8-10.8) K/uL RBC (4.40-5.90) Mil/uL Hgb (12.0-18.0) g/dL Hct (35.0-51.0) % MCV (80.0-94.0) fl MCH (27.0-31.0) pg MCHC (33.0-37.0) g/dL RDW (11.5-14.5) % Plt Count (130-400) K/uL MPV (7.2-11.7) fl Neut % (Auto) (50.0-75.0) % Lymph % (Auto) (20.0-40.0) % [place] % (Auto) (0.0-10.0) % Eos % (Auto) (0.0-4.0) % Baso % (Auto) (0.0-2.0) % Neut # (Auto) (1.8-7.0) K/uL Lymph # (Auto) (1.0-4.3) K/uL [place] # (Auto) (0.0-0.8) K/uL Eos # (Auto) (0.0-0.7) K/uL Baso # (Auto) (0.0-0.2) K/uL PT (9.8-13.1) Seconds INR (0.9-1.2) APTT (25.6-37.1) Seconds D-Dimer, Quantitative (0-230) ng/mlDDU pCO2 (35-45) mm/Hg pO2 (30-55) mm/Hg HCO3 (21-28) mmol/L ABG pH (7.35-7.45) ABG Total CO2 (22-28) mmol/L ABG O2 Saturation (95-98) % ABG O2 Content (15-23) ML/dL ABG Base Excess (-2.0-3.0) mmol/L ABG Hemoglobin (11.7-17.4) g/dL ABG Carboxyhemoglobin (0.5-1.5) % POC ABG HHb (Measured) (0.0-5.0) % ABG Methemoglobin (0.0-3.0) % ABG O2 Capacity (16-24) mL/dL Tristen Test VBG pH (7.32-7.43) VBG pCO2 (40-60) mmHg VBG HCO3 mmol/L VBG Total CO2 (22-28) mmol/L VBG O2 Sat (Calc) (40-65) % VBG Base Excess (0.0-2.0) mmol/L VBG Potassium (3.6-5.2) mmol/L A-a O2 Difference mm/Hg Hgb O2 Saturation (95.0-98.0) % Sodium (132-148) mmol/L Chloride (98-107) mmol/L Glucose (75-110) mg/dL Lactate (0.7-2.1) mmol/L FiO2 % Potassium (3.6-5.0) MMOL/L Carbon Dioxide (22-30) mmol/L Anion Gap (10-20) BUN (9-20) mg/dl Creatinine (0.8-1.5) mg/dl Est GFR ( Amer) Est GFR (Non-Af Amer) POC Glucose (mg/dL) 103 (65-110) mg/dL Random Glucose (75-110) mg/dL Calcium (8.4-10.2) mg/dL Phosphorus (2.5-4.5) mg/dl Magnesium (1.6-2.3) MG/DL Iron (49-181) ug/dL TIBC (250-450) ug/dL % Saturation (20-55) % Total Bilirubin (0.2-1.3) mg/dl AST (17-59) U/L ALT (21-72) U/L Alkaline Phosphatase (38-126) U/L Troponin I 0.0200 0.0200 (0.00-0.120) ng/mL NT-Pro-B Natriuret Pep (0-900) pg/ml Total Protein (6.3-8.2) G/DL Albumin (3.5-5.0) g/dL Globulin (2.2-3.9) gm/dL Albumin/Globulin Ratio (1.0-2.1) TSH 3rd Generation (0.46-4.68) mIU/ML Venous Blood Potassium (3.6-5.2) mmol/L Alcohol, Quantitative (0-10) mg/dl Influenza Typ A,B (EIA) (NEGATIVE) Blood Type Antibody Screen BBK History Checked 12/14/17 12/14/17 12/14/17 Range/Units 04:42 04:42 02:29 WBC 10.0 (4.8-10.8) K/uL RBC 4.36 L (4.40-5.90) Mil/uL Hgb 10.2 L (12.0-18.0) g/dL Hct 33.2 L (35.0-51.0) % MCV 76.1 L (80.0-94.0) fl MCH 23.5 L (27.0-31.0) pg MCHC 30.8 L (33.0-37.0) g/dL RDW 16.2 H (11.5-14.5) % Plt Count 209 (130-400) K/uL MPV 9.1 (7.2-11.7) fl Neut % (Auto) 70.9 (50.0-75.0) % Lymph % (Auto) 21.5 (20.0-40.0) % [place] % (Auto) 6.4 (0.0-10.0) % Eos % (Auto) 0.7 (0.0-4.0) % Baso % (Auto) 0.5 (0.0-2.0) % Neut # (Auto) 7.1 H (1.8-7.0) K/uL Lymph # (Auto) 2.1 (1.0-4.3) K/uL [place] # (Auto) 0.6 (0.0-0.8) K/uL Eos # (Auto) 0.1 (0.0-0.7) K/uL Baso # (Auto) 0.1 (0.0-0.2) K/uL PT (9.8-13.1) Seconds INR (0.9-1.2) APTT (25.6-37.1) Seconds D-Dimer, Quantitative (0-230) ng/mlDDU pCO2 35 (35-45) mm/Hg pO2 68 L (30-55) mm/Hg HCO3 27.5 (21-28) mmol/L ABG pH 7.49 H (7.35-7.45) ABG Total CO2 27.8 (22-28) mmol/L ABG O2 Saturation 98.6 H (95-98) % ABG O2 Content 13.9 L (15-23) ML/dL ABG Base Excess 3.4 H (-2.0-3.0) mmol/L ABG Hemoglobin 10.6 L (11.7-17.4) g/dL ABG Carboxyhemoglobin 3.8 H (0.5-1.5) % POC ABG HHb (Measured) 1.3 (0.0-5.0) % ABG Methemoglobin 2.0 (0.0-3.0) % ABG O2 Capacity 14.1 L (16-24) mL/dL Tristen Test Yes VBG pH (7.32-7.43) VBG pCO2 (40-60) mmHg VBG HCO3 mmol/L VBG Total CO2 (22-28) mmol/L VBG O2 Sat (Calc) (40-65) % VBG Base Excess (0.0-2.0) mmol/L VBG Potassium (3.6-5.2) mmol/L A-a O2 Difference 38.0 mm/Hg Hgb O2 Saturation 92.9 L (95.0-98.0) % Sodium (132-148) mmol/L Chloride (98-107) mmol/L Glucose (75-110) mg/dL Lactate (0.7-2.1) mmol/L FiO2 21.0 % Potassium (3.6-5.0) MMOL/L Carbon Dioxide (22-30) mmol/L Anion Gap (10-20) BUN (9-20) mg/dl Creatinine (0.8-1.5) mg/dl Est GFR ( Amer) Est GFR (Non-Af Amer) POC Glucose (mg/dL) (65-110) mg/dL Random Glucose (75-110) mg/dL Calcium (8.4-10.2) mg/dL Phosphorus (2.5-4.5) mg/dl Magnesium (1.6-2.3) MG/DL Iron 36 L (49-181) ug/dL TIBC 274 (250-450) ug/dL % Saturation 13 L (20-55) % Total Bilirubin (0.2-1.3) mg/dl AST (17-59) U/L ALT (21-72) U/L Alkaline Phosphatase (38-126) U/L Troponin I (0.00-0.120) ng/mL NT-Pro-B Natriuret Pep (0-900) pg/ml Total Protein (6.3-8.2) G/DL Albumin (3.5-5.0) g/dL Globulin (2.2-3.9) gm/dL Albumin/Globulin Ratio (1.0-2.1) TSH 3rd Generation (0.46-4.68) mIU/ML Venous Blood Potassium (3.6-5.2) mmol/L Alcohol, Quantitative (0-10) mg/dl Influenza Typ A,B (EIA) (NEGATIVE) Blood Type Antibody Screen BBK History Checked 12/13/17 12/13/17 12/13/17 Range/Units 18:43 18:43 18:43 WBC 10.1 (4.8-10.8) K/uL RBC 4.90 (4.40-5.90) Mil/uL Hgb 11.4 L (12.0-18.0) g/dL Hct 37.2 (35.0-51.0) % MCV 76.0 L D (80.0-94.0) fl MCH 23.4 L (27.0-31.0) pg MCHC 30.7 L (33.0-37.0) g/dL RDW 16.2 H (11.5-14.5) % Plt Count 237 (130-400) K/uL MPV 9.5 (7.2-11.7) fl Neut % (Auto) 73.8 (50.0-75.0) % Lymph % (Auto) 18.4 L (20.0-40.0) % [place] % (Auto) 6.1 (0.0-10.0) % Eos % (Auto) 0.9 (0.0-4.0) % Baso % (Auto) 0.8 (0.0-2.0) % Neut # (Auto) 7.4 H (1.8-7.0) K/uL Lymph # (Auto) 1.9 (1.0-4.3) K/uL [place] # (Auto) 0.6 (0.0-0.8) K/uL Eos # (Auto) 0.1 (0.0-0.7) K/uL Baso # (Auto) 0.1 (0.0-0.2) K/uL PT 12.4 (9.8-13.1) Seconds INR 1.1 (0.9-1.2) APTT 25.5 L (25.6-37.1) Seconds D-Dimer, Quantitative 752 H (0-230) ng/mlDDU pCO2 (35-45) mm/Hg pO2 (30-55) mm/Hg HCO3 (21-28) mmol/L ABG pH (7.35-7.45) ABG Total CO2 (22-28) mmol/L ABG O2 Saturation (95-98) % ABG O2 Content (15-23) ML/dL ABG Base Excess (-2.0-3.0) mmol/L ABG Hemoglobin (11.7-17.4) g/dL ABG Carboxyhemoglobin (0.5-1.5) % POC ABG HHb (Measured) (0.0-5.0) % ABG Methemoglobin (0.0-3.0) % ABG O2 Capacity (16-24) mL/dL Tristen Test VBG pH (7.32-7.43) VBG pCO2 (40-60) mmHg VBG HCO3 mmol/L VBG Total CO2 (22-28) mmol/L VBG O2 Sat (Calc) (40-65) % VBG Base Excess (0.0-2.0) mmol/L VBG Potassium (3.6-5.2) mmol/L A-a O2 Difference mm/Hg Hgb O2 Saturation (95.0-98.0) % Sodium (132-148) mmol/L Chloride (98-107) mmol/L Glucose (75-110) mg/dL Lactate (0.7-2.1) mmol/L FiO2 % Potassium (3.6-5.0) MMOL/L Carbon Dioxide (22-30) mmol/L Anion Gap (10-20) BUN (9-20) mg/dl Creatinine (0.8-1.5) mg/dl Est GFR ( Amer) Est GFR (Non-Af Amer) POC Glucose (mg/dL) (65-110) mg/dL Random Glucose (75-110) mg/dL Calcium (8.4-10.2) mg/dL Phosphorus (2.5-4.5) mg/dl Magnesium (1.6-2.3) MG/DL Iron (49-181) ug/dL TIBC (250-450) ug/dL % Saturation (20-55) % Total Bilirubin (0.2-1.3) mg/dl AST (17-59) U/L ALT (21-72) U/L Alkaline Phosphatase (38-126) U/L Troponin I (0.00-0.120) ng/mL NT-Pro-B Natriuret Pep (0-900) pg/ml Total Protein (6.3-8.2) G/DL Albumin (3.5-5.0) g/dL Globulin (2.2-3.9) gm/dL Albumin/Globulin Ratio (1.0-2.1) TSH 3rd Generation (0.46-4.68) mIU/ML Venous Blood Potassium (3.6-5.2) mmol/L Alcohol, Quantitative (0-10) mg/dl Influenza Typ A,B (EIA) Negative for flu a/b (NEGATIVE) Blood Type Antibody Screen BBK History Checked 12/13/17 12/13/17 12/13/17 Range/Units 18:43 18:40 18:20 WBC (4.8-10.8) K/uL RBC (4.40-5.90) Mil/uL Hgb (12.0-18.0) g/dL Hct (35.0-51.0) % MCV (80.0-94.0) fl MCH (27.0-31.0) pg MCHC (33.0-37.0) g/dL RDW (11.5-14.5) % Plt Count (130-400) K/uL MPV (7.2-11.7) fl Neut % (Auto) (50.0-75.0) % Lymph % (Auto) (20.0-40.0) % [place] % (Auto) (0.0-10.0) % Eos % (Auto) (0.0-4.0) % Baso % (Auto) (0.0-2.0) % Neut # (Auto) (1.8-7.0) K/uL Lymph # (Auto) (1.0-4.3) K/uL [place] # (Auto) (0.0-0.8) K/uL Eos # (Auto) (0.0-0.7) K/uL Baso # (Auto) (0.0-0.2) K/uL PT (9.8-13.1) Seconds INR (0.9-1.2) APTT (25.6-37.1) Seconds D-Dimer, Quantitative (0-230) ng/mlDDU pCO2 (35-45) mm/Hg pO2 25 L (30-55) mm/Hg HCO3 (21-28) mmol/L ABG pH (7.35-7.45) ABG Total CO2 (22-28) mmol/L ABG O2 Saturation (95-98) % ABG O2 Content (15-23) ML/dL ABG Base Excess (-2.0-3.0) mmol/L ABG Hemoglobin (11.7-17.4) g/dL ABG Carboxyhemoglobin (0.5-1.5) % POC ABG HHb (Measured) (0.0-5.0) % ABG Methemoglobin (0.0-3.0) % ABG O2 Capacity (16-24) mL/dL Tristen Test VBG pH 7.42 (7.32-7.43) VBG pCO2 44 (40-60) mmHg VBG HCO3 26.2 mmol/L VBG Total CO2 29.9 H (22-28) mmol/L VBG O2 Sat (Calc) 34.6 L (40-65) % VBG Base Excess 3.4 H (0.0-2.0) mmol/L VBG Potassium 3.5 L (3.6-5.2) mmol/L A-a O2 Difference mm/Hg Hgb O2 Saturation (95.0-98.0) % Sodium 144 139.0 (132-148) mmol/L Chloride 105 110.0 H (98-107) mmol/L Glucose 104 (75-110) mg/dL Lactate 1.3 (0.7-2.1) mmol/L FiO2 21.0 % Potassium 3.7 (3.6-5.0) MMOL/L Carbon Dioxide 26 (22-30) mmol/L Anion Gap 17 (10-20) BUN 14 (9-20) mg/dl Creatinine 0.8 (0.8-1.5) mg/dl Est GFR ( Amer) > 60 Est GFR (Non-Af Amer) > 60 POC Glucose (mg/dL) (65-110) mg/dL Random Glucose 101 (75-110) mg/dL Calcium 9.2 (8.4-10.2) mg/dL Phosphorus 2.8 (2.5-4.5) mg/dl Magnesium 2.1 (1.6-2.3) MG/DL Iron (49-181) ug/dL TIBC (250-450) ug/dL % Saturation (20-55) % Total Bilirubin 1.0 (0.2-1.3) mg/dl AST 41 (17-59) U/L ALT 60 (21-72) U/L Alkaline Phosphatase 66 (38-126) U/L Troponin I 0.0230 (0.00-0.120) ng/mL NT-Pro-B Natriuret Pep 8460 H (0-900) pg/ml Total Protein 6.7 (6.3-8.2) G/DL Albumin 3.6 (3.5-5.0) g/dL Globulin 3.1 (2.2-3.9) gm/dL Albumin/Globulin Ratio 1.1 (1.0-2.1) TSH 3rd Generation 0.51 (0.46-4.68) mIU/ML Venous Blood Potassium 3.5 L (3.6-5.2) mmol/L Alcohol, Quantitative < 10 (0-10) mg/dl Influenza Typ A,B (EIA) (NEGATIVE) Blood Type Cancelled Antibody Screen Cancelled BBK History Checked Cancelled Laboratory Results - last 24 hr 12/13/17 12/13/17 12/13/17 18:20 18:40 18:43 WBC RBC Hgb Hct MCV MCH MCHC RDW Plt Count MPV Neut % (Auto) Lymph % (Auto) [place] % (Auto) Eos % (Auto) Baso % (Auto) Neut # (Auto) Lymph # (Auto) [place] # (Auto) Eos # (Auto) Baso # (Auto) PT INR APTT D-Dimer, Quantitative pCO2 pO2 25 L HCO3 ABG pH ABG Total CO2 ABG O2 Saturation ABG O2 Content ABG Base Excess ABG Hemoglobin ABG Carboxyhemoglobin POC ABG HHb (Measured) ABG Methemoglobin ABG O2 Capacity Tristen Test VBG pH 7.42 VBG pCO2 44 VBG HCO3 26.2 VBG Total CO2 29.9 H VBG O2 Sat (Calc) 34.6 L VBG Base Excess 3.4 H VBG Potassium 3.5 L A-a O2 Difference Hgb O2 Saturation Sodium 139.0 144 Chloride 110.0 H 105 Glucose 104 Lactate 1.3 FiO2 21.0 Potassium 3.7 Carbon Dioxide 26 Anion Gap 17 BUN 14 Creatinine 0.8 Est GFR ( Amer) > 60 Est GFR (Non-Af Amer) > 60 POC Glucose (mg/dL) Random Glucose 101 Calcium 9.2 Phosphorus 2.8 Magnesium 2.1 Iron TIBC % Saturation Total Bilirubin 1.0 AST 41 ALT 60 Alkaline Phosphatase 66 Troponin I 0.0230 NT-Pro-B Natriuret Pep 8460 H Total Protein 6.7 Albumin 3.6 Globulin 3.1 Albumin/Globulin Ratio 1.1 TSH 3rd Generation 0.51 Venous Blood Potassium 3.5 L Alcohol, Quantitative < 10 Influenza Typ A,B (EIA) Blood Type Cancelled Antibody Screen Cancelled BBK History Checked Cancelled 12/13/17 12/13/17 12/13/17 18:43 18:43 18:43 WBC 10.1 RBC 4.90 Hgb 11.4 L Hct 37.2 MCV 76.0 L D MCH 23.4 L MCHC 30.7 L RDW 16.2 H Plt Count 237 MPV 9.5 Neut % (Auto) 73.8 Lymph % (Auto) 18.4 L [place] % (Auto) 6.1 Eos % (Auto) 0.9 Baso % (Auto) 0.8 Neut # (Auto) 7.4 H Lymph # (Auto) 1.9 [place] # (Auto) 0.6 Eos # (Auto) 0.1 Baso # (Auto) 0.1 PT 12.4 INR 1.1 APTT 25.5 L D-Dimer, Quantitative 752 H pCO2 pO2 HCO3 ABG pH ABG Total CO2 ABG O2 Saturation ABG O2 Content ABG Base Excess ABG Hemoglobin ABG Carboxyhemoglobin POC ABG HHb (Measured) ABG Methemoglobin ABG O2 Capacity Tristen Test VBG pH VBG pCO2 VBG HCO3 VBG Total CO2 VBG O2 Sat (Calc) VBG Base Excess VBG Potassium A-a O2 Difference Hgb O2 Saturation Sodium Chloride Glucose Lactate FiO2 Potassium Carbon Dioxide Anion Gap BUN Creatinine Est GFR ( Amer) Est GFR (Non-Af Amer) POC Glucose (mg/dL) Random Glucose Calcium Phosphorus Magnesium Iron TIBC % Saturation Total Bilirubin AST ALT Alkaline Phosphatase Troponin I NT-Pro-B Natriuret Pep Total Protein Albumin Globulin Albumin/Globulin Ratio TSH 3rd Generation Venous Blood Potassium Alcohol, Quantitative Influenza Typ A,B (EIA) Negative for flu a/b Blood Type Antibody Screen BBK History Checked 12/14/17 12/14/17 12/14/17 02:29 04:42 04:42 WBC 10.0 RBC 4.36 L Hgb 10.2 L Hct 33.2 L MCV 76.1 L MCH 23.5 L MCHC 30.8 L RDW 16.2 H Plt Count 209 MPV 9.1 Neut % (Auto) 70.9 Lymph % (Auto) 21.5 [place] % (Auto) 6.4 Eos % (Auto) 0.7 Baso % (Auto) 0.5 Neut # (Auto) 7.1 H Lymph # (Auto) 2.1 [place] # (Auto) 0.6 Eos # (Auto) 0.1 Baso # (Auto) 0.1 PT INR APTT D-Dimer, Quantitative pCO2 35 pO2 68 L HCO3 27.5 ABG pH 7.49 H ABG Total CO2 27.8 ABG O2 Saturation 98.6 H ABG O2 Content 13.9 L ABG Base Excess 3.4 H ABG Hemoglobin 10.6 L ABG Carboxyhemoglobin 3.8 H POC ABG HHb (Measured) 1.3 ABG Methemoglobin 2.0 ABG O2 Capacity 14.1 L Tristen Test Yes VBG pH VBG pCO2 VBG HCO3 VBG Total CO2 VBG O2 Sat (Calc) VBG Base Excess VBG Potassium A-a O2 Difference 38.0 Hgb O2 Saturation 92.9 L Sodium Chloride Glucose Lactate FiO2 21.0 Potassium Carbon Dioxide Anion Gap BUN Creatinine Est GFR ( Amer) Est GFR (Non-Af Amer) POC Glucose (mg/dL) Random Glucose Calcium Phosphorus Magnesium Iron 36 L TIBC 274 % Saturation 13 L Total Bilirubin AST ALT Alkaline Phosphatase Troponin I NT-Pro-B Natriuret Pep Total Protein Albumin Globulin Albumin/Globulin Ratio TSH 3rd Generation Venous Blood Potassium Alcohol, Quantitative Influenza Typ A,B (EIA) Blood Type Antibody Screen BBK History Checked 12/14/17 12/14/17 12/14/17 04:42 11:07 11:11 WBC RBC Hgb Hct MCV MCH MCHC RDW Plt Count MPV Neut % (Auto) Lymph % (Auto) [place] % (Auto) Eos % (Auto) Baso % (Auto) Neut # (Auto) Lymph # (Auto) [place] # (Auto) Eos # (Auto) Baso # (Auto) PT INR APTT D-Dimer, Quantitative pCO2 pO2 HCO3 ABG pH ABG Total CO2 ABG O2 Saturation ABG O2 Content ABG Base Excess ABG Hemoglobin ABG Carboxyhemoglobin POC ABG HHb (Measured) ABG Methemoglobin ABG O2 Capacity Tristen Test VBG pH VBG pCO2 VBG HCO3 VBG Total CO2 VBG O2 Sat (Calc) VBG Base Excess VBG Potassium A-a O2 Difference Hgb O2 Saturation Sodium Chloride Glucose Lactate FiO2 Potassium Carbon Dioxide Anion Gap BUN Creatinine Est GFR ( Amer) Est GFR (Non-Af Amer) POC Glucose (mg/dL) 103 Random Glucose Calcium Phosphorus Magnesium Iron TIBC % Saturation Total Bilirubin AST ALT Alkaline Phosphatase Troponin I 0.0200 0.0200 NT-Pro-B Natriuret Pep Total Protein Albumin Globulin Albumin/Globulin Ratio TSH 3rd Generation Venous Blood Potassium Alcohol, Quantitative Influenza Typ A,B (EIA) Blood Type Antibody Screen BBK History Checked EKG/Cardiology Studies: Cardiology / EKG Studies 12/13/17 18:19 ELECTROCARDIOGRAM Stat Comment: Mode Of Transportation: Reason For Exam: sob Isolation: Contact Critical Care Progress Note - Nutrition Nutrition: Nutrition Category Date Time Status Heart Healthy Diet [DIET] Diets 12/14/17 Breakfast Active Attending/Attestation - Attestation I have personally seen and examined this patient.: Yes I have fully participated in the care of the patient.: Yes I have reviewed all pertinent clinical information: Yes Notes (Text): 12/14/17 15:55 Today: Thursday, December 14, 2017 The patient was Seen/interviewed and examined by me at the bedside during ICU round, Medical records reviewed and Management issues were discussed and formulated with the house staff. Events reviewed I have reviewed all the relevant clinical, laboratory, hemodynamic, radiographic data and medications Pain issues, skin care, head of the bed elevation, glycemic control were addressed. I concur with resident's assessment and plan of care as transcribed in Dr. Heck note.
[2017-12-14 14:13] VITALS: BMI 32.1
--- NOTE | 2017-12-14 19:11 | CP.PCM.CON ---
History of Present Illness - History of Present Illness History of Present Illness: I was asked to see patient by Dr Ludwig. Patient is a 57 year old male with PMH HTN, hypercholesterolemia who presents with dyspnea. Patient tox screen is positive for heroin. The patient denies chest pain or palpitiatons. He is comfortable in bed. Patient has a history of CVA and is wheelchair bound. Previous cardiac catheterization revealed multivessel CAD and severe LV dysfunction. The patient was placed on a Lifevest but has been noncompliant. Review of Systems - Review of Systems Systems not reviewed;Unavailable: Uncooperative Past Patient History - Infectious Disease Hx of Infectious Diseases: None - Past Medical History & Family History Past Medical History?: Yes - Past Social History Smoking Status: Current Some Days Smoker - CARDIAC Hx Congestive Heart Failure: Yes Hx Hypercholesterolemia: Yes Hx Hypertension: Yes Hx Mitral Valve Prolapse: No Hx Peripheral Edema: Yes - PULMONARY Hx Bronchitis: No Hx Pneumonia: No Hx Pulmonary Embolism: Yes Hx Sleep Apnea: No - NEUROLOGICAL Hx Seizures: Yes (last episode 03/2017) - HEENT Hx HEENT Problems: No - RENAL Hx Chronic Kidney Disease: No - ENDOCRINE/METABOLIC Hx Endocrine Disorders: No - HEMATOLOGICAL/ONCOLOGICAL Hx Blood Disorders: No - INTEGUMENTARY Hx Dermatological Problems: No - MUSCULOSKELETAL/RHEUMATOLOGICAL Hx Musculoskeletal Disorders: Yes Other/Comment: USES WHEELCHAIR AND WALKER - GASTROINTESTINAL Hx Gastritis: Yes - GENITOURINARY/GYNECOLOGICAL Hx Genitourinary Disorders: Yes Hx Incontinence: Yes Hx Urinary Tract Infection: Yes - PSYCHIATRIC Hx Psychophysiologic Disorder: No - SURGICAL HISTORY Hx Surgeries: Yes Other/Comment: ivc filter - ANESTHESIA Hx Anesthesia: Yes Hx Anesthesia Reactions: No Hx Malignant Hyperthermia: (pt does not know) Meds Allergies/Adverse Reactions: Allergies Allergy/AdvReac Type Severity Reaction Status Date / Time PORK Allergy Mild URTICARIA Verified 09/12/17 19:41 - Medications Medications: Current Medications Aspirin (Ecotrin) 81 mg PO DAILY [facility] Last Admin: 12/14/17 09:16 Dose: 81 mg Atorvastatin Calcium (Lipitor) 20 mg PO DAILY [facility] Last Admin: 12/14/17 09:16 Dose: 20 mg Carvedilol (Coreg) 6.25 mg PO BID [facility] Last Admin: 12/14/17 16:32 Dose: 6.25 mg Enoxaparin Sodium (Lovenox) 110 mg SC Q12 [facility] PRN Reason: Protocol Last Admin: 12/14/17 09:16 Dose: 110 mg Furosemide (Lasix) 40 mg PO BID [facility] Last Admin: 12/14/17 16:35 Dose: 40 mg Levetiracetam (Keppra) 750 mg PO BID [facility] Last Admin: 12/14/17 16:33 Dose: 750 mg Lisinopril (Zestril) 20 mg PO DAILY [facility] Last Admin: 12/14/17 09:17 Dose: 20 mg Physical Exam - Constitutional Appears: Chronically Ill - Head Exam Head Exam: NORMAL INSPECTION - Eye Exam Eye Exam: Normal appearance - ENT Exam ENT Exam: Mucous Membranes Moist - Neck Exam Neck exam: Positive for: Full Rom - Respiratory Exam Respiratory Exam: Decreased Breath Sounds - Cardiovascular Exam Cardiovascular Exam: REGULAR RHYTHM - GI/Abdominal Exam GI & Abdominal Exam: Normal Bowel Sounds - Rectal Exam Rectal Exam: Deferred - Extremities Exam Extremities exam: Negative for: pedal edema - Back Exam Back exam: NORMAL INSPECTION - Neurological Exam Neurological exam: Alert - Psychiatric Exam Psychiatric exam: Flat Affect - Skin Skin Exam: Normal Color Results - Vital Signs Recent Vital Signs: Last Vital Signs Temp 98.1 F 12/14/17 16:00 Pulse 84 12/14/17 16:35 Resp 20 12/14/17 16:35 BP 144/84 12/14/17 16:35 Pulse Ox 98 12/14/17 16:35 - Labs Result Diagrams: 12/14/17 04:42 12/13/17 18:43 Labs: Laboratory Results - last 24 hr 12/13/17 12/13/17 12/13/17 18:20 18:43 18:43 WBC 10.1 RBC 4.90 Hgb 11.4 L Hct 37.2 MCV 76.0 L D MCH 23.4 L MCHC 30.7 L RDW 16.2 H Plt Count 237 MPV 9.5 Neut % (Auto) 73.8 Lymph % (Auto) 18.4 L [place] % (Auto) 6.1 Eos % (Auto) 0.9 Baso % (Auto) 0.8 Neut # (Auto) 7.4 H Lymph # (Auto) 1.9 [place] # (Auto) 0.6 Eos # (Auto) 0.1 Baso # (Auto) 0.1 PT INR APTT D-Dimer, Quantitative pCO2 pO2 HCO3 ABG pH ABG Total CO2 ABG O2 Saturation ABG O2 Content ABG Base Excess ABG Hemoglobin ABG Carboxyhemoglobin POC ABG HHb (Measured) ABG Methemoglobin ABG O2 Capacity Tristen Test A-a O2 Difference Hgb O2 Saturation FiO2 Sodium 144 Potassium 3.7 Chloride 105 Carbon Dioxide 26 Anion Gap 17 BUN 14 Creatinine 0.8 Est GFR ( Amer) > 60 Est GFR (Non-Af Amer) > 60 POC Glucose (mg/dL) Random Glucose 101 Calcium 9.2 Phosphorus 2.8 Magnesium 2.1 Iron TIBC % Saturation Total Bilirubin 1.0 AST 41 ALT 60 Alkaline Phosphatase 66 Troponin I 0.0230 NT-Pro-B Natriuret Pep 8460 H Total Protein 6.7 Albumin 3.6 Globulin 3.1 Albumin/Globulin Ratio 1.1 TSH 3rd Generation 0.51 Alcohol, Quantitative < 10 Influenza Typ A,B (EIA) Blood Type Cancelled Antibody Screen Cancelled BBK History Checked Cancelled 12/13/17 12/13/17 12/14/17 18:43 18:43 02:29 WBC RBC Hgb Hct MCV MCH MCHC RDW Plt Count MPV Neut % (Auto) Lymph % (Auto) [place] % (Auto) Eos % (Auto) Baso % (Auto) Neut # (Auto) Lymph # (Auto) [place] # (Auto) Eos # (Auto) Baso # (Auto) PT 12.4 INR 1.1 APTT 25.5 L D-Dimer, Quantitative 752 H pCO2 35 pO2 68 L HCO3 27.5 ABG pH 7.49 H ABG Total CO2 27.8 ABG O2 Saturation 98.6 H ABG O2 Content 13.9 L ABG Base Excess 3.4 H ABG Hemoglobin 10.6 L ABG Carboxyhemoglobin 3.8 H POC ABG HHb (Measured) 1.3 ABG Methemoglobin 2.0 ABG O2 Capacity 14.1 L Tristen Test Yes A-a O2 Difference 38.0 Hgb O2 Saturation 92.9 L FiO2 21.0 Sodium Potassium Chloride Carbon Dioxide Anion Gap BUN Creatinine Est GFR ( Amer) Est GFR (Non-Af Amer) POC Glucose (mg/dL) Random Glucose Calcium Phosphorus Magnesium Iron TIBC % Saturation Total Bilirubin AST ALT Alkaline Phosphatase Troponin I NT-Pro-B Natriuret Pep Total Protein Albumin Globulin Albumin/Globulin Ratio TSH 3rd Generation Alcohol, Quantitative Influenza Typ A,B (EIA) Negative for flu a/b Blood Type Antibody Screen BBK History Checked 12/14/17 12/14/17 12/14/17 04:42 04:42 04:42 WBC 10.0 RBC 4.36 L Hgb 10.2 L Hct 33.2 L MCV 76.1 L MCH 23.5 L MCHC 30.8 L RDW 16.2 H Plt Count 209 MPV 9.1 Neut % (Auto) 70.9 Lymph % (Auto) 21.5 [place] % (Auto) 6.4 Eos % (Auto) 0.7 Baso % (Auto) 0.5 Neut # (Auto) 7.1 H Lymph # (Auto) 2.1 [place] # (Auto) 0.6 Eos # (Auto) 0.1 Baso # (Auto) 0.1 PT INR APTT D-Dimer, Quantitative pCO2 pO2 HCO3 ABG pH ABG Total CO2 ABG O2 Saturation ABG O2 Content ABG Base Excess ABG Hemoglobin ABG Carboxyhemoglobin POC ABG HHb (Measured) ABG Methemoglobin ABG O2 Capacity Tristen Test A-a O2 Difference Hgb O2 Saturation FiO2 Sodium Potassium Chloride Carbon Dioxide Anion Gap BUN Creatinine Est GFR ( Amer) Est GFR (Non-Af Amer) POC Glucose (mg/dL) Random Glucose Calcium Phosphorus Magnesium Iron 36 L TIBC 274 % Saturation 13 L Total Bilirubin AST ALT Alkaline Phosphatase Troponin I 0.0200 NT-Pro-B Natriuret Pep Total Protein Albumin Globulin Albumin/Globulin Ratio TSH 3rd Generation Alcohol, Quantitative Influenza Typ A,B (EIA) Blood Type Antibody Screen BBK History Checked 12/14/17 12/14/17 11:07 11:11 WBC RBC Hgb Hct MCV MCH MCHC RDW Plt Count MPV Neut % (Auto) Lymph % (Auto) [place] % (Auto) Eos % (Auto) Baso % (Auto) Neut # (Auto) Lymph # (Auto) [place] # (Auto) Eos # (Auto) Baso # (Auto) PT INR APTT D-Dimer, Quantitative pCO2 pO2 HCO3 ABG pH ABG Total CO2 ABG O2 Saturation ABG O2 Content ABG Base Excess ABG Hemoglobin ABG Carboxyhemoglobin POC ABG HHb (Measured) ABG Methemoglobin ABG O2 Capacity Tristen Test A-a O2 Difference Hgb O2 Saturation FiO2 Sodium Potassium Chloride Carbon Dioxide Anion Gap BUN Creatinine Est GFR ( Amer) Est GFR (Non-Af Amer) POC Glucose (mg/dL) 103 Random Glucose Calcium Phosphorus Magnesium Iron TIBC % Saturation Total Bilirubin AST ALT Alkaline Phosphatase Troponin I 0.0200 NT-Pro-B Natriuret Pep Total Protein Albumin Globulin Albumin/Globulin Ratio TSH 3rd Generation Alcohol, Quantitative Influenza Typ A,B (EIA) Blood Type Antibody Screen BBK History Checked - EKG Data EKG Interpreted by: Myself Assessment & Plan (1) CAD (coronary artery disease) Assessment and Plan: will manage medically with antiplatelet therapy. Status: Acute (2) CHF (congestive heart failure) Assessment and Plan: chronic systolic dysfunction Status: Acute (3) CVA, old, hemiparesis Assessment and Plan: antiplatelet therapy Status: Acute
--- NOTE | 2017-12-14 20:27 | CARD ---
APPROVED REPORT EXAM: Two-dimensional and M-mode echocardiogram with Doppler and color Doppler. Other Information Quality : GoodRhythm : NSR INDICATION Pulmonary Embolism Congestive Heart Failure 2D DIMENSIONS IVSd1.18 (0.7-1.1cm)LVDd6.68 (3.9-5.9cm) LVOT Diameter2.94 (1.8-2.4cm)PWd0.85 (0.7-1.1cm) IVSs1.19 (0.8-1.2cm)LVDs6.30 (2.5-4.0cm) FS (%) 5.6 %PWs1.30 (0.8-1.2cm) M-Mode DIMENSIONS Left Atrium (MM)5.75 (2.5-4.0cm)IVSd1.00 (0.7-1.1cm) Aortic Root3.74 (2.2-3.7cm)LVDd9.57 (4.0-5.6cm) Aortic Cusp Exc.2.55 (1.5-2.0cm)PWd1.08 (0.7-1.1cm) IVSs1.93 cmFS (%) 22 % LVDs7.45 (2.0-3.8cm)PWs1.51 cm Mitral Valve E/A ratio0.0 TDI E/Lateral E'0.0E/Medial E'0.0 Tricuspid Valve TR Peak [id number] Peak Gr.16mmHg [id number] LEFT VENTRICLE The Left Ventricle is moderately dilated. There is normal left ventricular wall thickness. Left ventricle is severely impaired. The Ejection Fraction is 25-30%. Sever Apical and Septal hypokinesis Transmitral Doppler flow pattern is abnormal. Spontaneous contrast is noted consistent with the low flow state. RIGHT VENTRICLE The right ventricle is mildly dilated. There is normal right ventricular wall thickness. Systolic function is mildly reduced. ATRIA The left atrium is severely dilated. The right atrium is mildly dilated. AORTIC VALVE The aortic valve is mildly thickened. No aortic regurgitation is present. There is no aortic valvular stenosis. MITRAL VALVE The mitral valve is moderately thickened. There is no mitral valve stenosis. Mitral regurgitation is mild. TRICUSPID VALVE The tricuspid valve is normal in structure. There is mild tricuspid regurgitation. PULMONIC VALVE The pulmonary valve is normal in structure. There is no pulmonic valvular regurgitation. GREAT VESSELS The aortic root is normal in size. The IVC was not visualized. PERICARDIAL EFFUSION The pericardium appears normal. <Conclusion> The Left Ventricle is moderately dilated. There is normal left ventricular wall thickness. Left ventricle is severely impaired. The Ejection Fraction is 25-30%. Sever Apical and Septal hypokinesis Spontaneous contrast is noted consistent with the low flow state. Mitral regurgitation is mild.
[2017-12-14 22:29] LABS: BARBITURATES, UR NEGATIVE (NEGATIVE); BENZODIAZEPINES, UR NEGATIVE (NEGATIVE); OPIATES, UR POSITIVE (NEGATIVE); PHENCYCLIDINE, UR NEGATIVE (NEGATIVE)
--- NOTE | 2017-12-15 03:04 | CARD ---
APPROVED REPORT EKG Measurement Heart [id number] <Conclusion> Undetermined rhythm, likely A Fib Left axis deviation Left ventricular hypertrophy with QRS widening Nonspecific T wave abnormality Abnormal ECG
--- NOTE | 2017-12-15 03:14 | HP ---
HISTORY OF PRESENT ILLNESS: This is a 57-year-old male, who is homeless and lives in a half-way with history of multiple medical problems including CVA with left-sided weakness and the patient is wheelchair bound. The patient presented to emergency room with symptoms of progressive shortness of breath over 1-day duration. The patient was evaluated and found to have left pulmonary embolism. The patient was started on heparin and admitted to intensive care unit for further management. The patient denied to have any history of previous pulmonary embolism. Other review of systems is left-sided weakness with wheelchair bound. PAST MEDICAL HISTORY: Hypertension; seizure disorder, last seizure about 2 months ago, CVA with left-sided weakness. SOCIAL HISTORY: Smoker. Lives in a half-way and denied any EtOH or substance abuse. FAMILY HISTORY: Noncontributory. MEDICATIONS: As per MAR. PHYSICAL EXAMINATION: GENERAL: The patient is in bed, not in any cardiopulmonary distress at the time of this examination. VITAL SIGNS: Blood pressure 144/84, temperature 98.1, respiratory rate 20, and pulse 84. HEENT: Pupils equal and reactive to light. Normal-appearing mucosa of the conjunctivae, oropharynx, and nasal membrane mucosa. NECK: Supple. No JVD. No carotid bruit. No lymph node. No thyromegaly. CHEST AND LUNGS: Bilaterally symmetrical expansion. Good air exchange. No rales. No rhonchi. CARDIOVASCULAR: PMI not localized. S1 and S2. No additional sounds. ABDOMEN: Normoactive bowel sounds. No tenderness. No organomegaly. No masses. EXTREMITIES: No cyanosis. No clubbing. No edema. CENTRAL NERVOUS SYSTEM: Deformity of the left upper extremity with weakness of the left with muscle power 0/5 on the left side. ASSESSMENT: Pulmonary embolism, hypertension, status post cerebrovascular accident with left-sided weakness, seizure disorder, and smoker. PLAN: We will continue the [id number] heparin and resume the patient's home medications. Pulmonary and Cardiology consult, echocardiogram. Lyla MD Oziel
[2017-12-15 05:27] LABS: HEMOGLOBIN 10.4 g/dL (12.0-18.0); MEAN CELL VOLUME 75.2 fl (80.0-94.0); MEAN CORPUSCULAR HEMOGLOBIN 24.1 pg (27.0-31.0); MEAN CORPUSCULAR HGB CONC 32.1 g/dL (33.0-37.0); RBC 4.32 Mil/uL (4.40-5.90); RED CELL DISTRIBUTION WIDTH 15.8 % (11.5-14.5); WHITE BLOOD COUNT 10.3 K/uL (4.8-10.8)
[2017-12-15 06:21] LABS: ALBUMIN 2.7 g/dL (3.5-5.0); ALT/SGPT 44 U/L (21-72); AST/SGOT 18 U/L (17-59); BLOOD UREA NITROGEN 10 mg/dl (9-20); CALCIUM 8.1 mg/dL (8.4-10.2); GFR AFRICAN-AMERICAN > 60; GFR NON-AFRICAN AMERICAN > 60
[2017-12-15] MEDS ORDERED: Potassium Chloride 20 mEq ER Tab PO ONE ×2 (06:36→11:11)
[2017-12-15] MEDS ORDERED: Potassium CL 10 MEQ/50 ML 50 ML IVPB SCH (07:00)
[2017-12-15] MEDS: Enoxaparin 120 mg Syringe SC SCH (08:54)
--- NOTE | 2017-12-15 10:10 | CP.CCUPN ---
<Anali Heck - Last Filed: 12/15/17 13:48> CCU Subjective - Physician Review Subjective (Free Text): 12/15/17 57 years old homeless, male with extensive PMHx including A Fib (not on anticoagulation), CVA ( left sided hemiparesis), HTN, CAD and Systolic CHF (EF 20 %), HTN, Pulmonary embolism, seizures(as per records last episode on 03/2017) who presented c/o worsening SOB, associated with productive cough, and swelling of both legs admitted for Pulmonary embolism and CHF exacerbation. Patient was seen and examined with rn transition attending during rounds. Patient is alert, awake, and oriented x 3. Denies CT, SOB, N/V, palpitations, dizziness at this eval. Critical Care Time Spent (in minutes): 35 CCU Objective - Vital Signs / Intake & Output Vital Signs (Last 4 hours): Vital Signs Temp Pulse Resp BP Pulse Ox 12/15/17 10:00 83 18 130/74 100 12/15/17 08:55 81 160/98 H 12/15/17 08:53 160/98 H 12/15/17 08:52 81 160/98 H 12/15/17 08:00 98.3 F 80 9 L 160/98 H 93 L 12/15/17 07:40 72 30 H 149/87 100 Intake and Output (Last 8hrs): Intake & Output 12/14/17 12/15/17 12/15/17 22:59 06:59 14:59 Intake Total 560 245 520 Output Total 1600 200 Balance -1040 45 520 Weight 208 lb Intake: IV 10 5 Intake, Piggyback 400 Oral 550 240 120 Output: Urine 1600 200 Urine, Voided 1600 200 Other: # Bowel Movements 1 - Physical Exam Head: Positive for: Atraumatic, Normocephalic Pupils: Positive for: PERRL Mouth: Positive for: Moist Mucous Membranes Neck: Positive for: Normal Range of Motion Cardiovascular: Positive for: Regular Rate and Rhythm, Normal S1, S2 Abdomen: Positive for: Tenderness (mild diffuse tenderness to palpation), Normal Bowel Sounds. Negative for: Distention, Rebound, Guarding Upper Extremity: Negative for: Edema Lower Extremity: Positive for: Normal Inspection. Negative for: Edema Skin: Positive for: Warm, Dry Psychiatric: Positive for: Alert, Oriented x 3 - Medications Active Medications: Active Medications Generic Name Dose Route Start Last Admin Trade Name Doretha PRN Reason Stop Dose Admin Aspirin 81 mg 12/14/17 09:00 12/15/17 08:53 Ecotrin PO 81 mg DAILY [facility] Administration Atorvastatin Calcium 20 mg 12/14/17 09:00 12/15/17 08:54 Lipitor PO 20 mg DAILY [facility] Administration Carvedilol 6.25 mg 12/14/17 09:00 12/15/17 08:52 Coreg PO 6.25 mg BID ENOC Administration Enoxaparin Sodium 110 mg 12/14/17 09:00 12/15/17 08:54 Lovenox SC 110 mg Q12 [facility] Administration Protocol Furosemide 40 mg 12/16/17 09:00 Lasix PO DAILY [facility] Levetiracetam 750 mg 12/14/17 09:00 12/15/17 08:53 Keppra PO 750 mg BID [facility] Administration Lisinopril 20 mg 12/14/17 09:00 12/15/17 08:55 Zestril PO 20 mg DAILY [facility] Administration - Patient Studies Lab Studies: Microbiology Studies 12/13/17 18:00 Blood Culture - Preliminary Blood-Venous NO GROWTH AFTER 24 HOURS 12/13/17 18:21 Blood Culture - Preliminary Blood-Venous NO GROWTH AFTER 24 HOURS Lab Studies 12/15/17 12/15/17 12/14/17 Range/Units 04:20 04:20 21:49 WBC 10.3 (4.8-10.8) K/uL RBC 4.32 L (4.40-5.90) Mil/uL Hgb 10.4 L (12.0-18.0) g/dL Hct 32.5 L (35.0-51.0) % MCV 75.2 L (80.0-94.0) fl MCH 24.1 L (27.0-31.0) pg MCHC 32.1 L (33.0-37.0) g/dL RDW 15.8 H (11.5-14.5) % Plt Count 216 (130-400) K/uL Sodium 143 (132-148) mmol/l Potassium 2.7 L (3.6-5.0) MMOL/L Chloride 106 (98-107) mmol/L Carbon Dioxide 26 (22-30) mmol/L Anion Gap 14 (10-20) BUN 10 (9-20) mg/dl Creatinine 0.9 (0.8-1.5) mg/dl Est GFR ( Amer) > 60 Est GFR (Non-Af Amer) > 60 POC Glucose (mg/dL) (65-110) mg/dL Random Glucose 101 (75-110) mg/dL Calcium 8.1 L (8.4-10.2) mg/dL Total Bilirubin 0.9 (0.2-1.3) mg/dl AST 18 (17-59) U/L ALT 44 (21-72) U/L Alkaline Phosphatase 55 (38-126) U/L Troponin I (0.00-0.120) ng/mL Total Protein 5.4 L (6.3-8.2) G/DL Albumin 2.7 L D (3.5-5.0) g/dL Globulin 2.6 (2.2-3.9) gm/dL Albumin/Globulin Ratio 1.0 (1.0-2.1) Urine Opiates Screen Positive H (NEGATIVE) Urine Methadone Screen Negative (NEGATIVE) Ur Barbiturates Screen Negative (NEGATIVE) Ur Phencyclidine Scrn Negative (NEGATIVE) Ur Amphetamines Screen Negative (NEGATIVE) U Benzodiazepines Scrn Negative (NEGATIVE) U Oth Cocaine Metabols Negative (NEGATIVE) U Cannabinoids Screen Negative (NEGATIVE) 12/14/17 12/14/17 Range/Units 11:11 11:07 WBC (4.8-10.8) K/uL RBC (4.40-5.90) Mil/uL Hgb (12.0-18.0) g/dL Hct (35.0-51.0) % MCV (80.0-94.0) fl MCH (27.0-31.0) pg MCHC (33.0-37.0) g/dL RDW (11.5-14.5) % Plt Count (130-400) K/uL Sodium (132-148) mmol/l Potassium (3.6-5.0) MMOL/L Chloride (98-107) mmol/L Carbon Dioxide (22-30) mmol/L Anion Gap (10-20) BUN (9-20) mg/dl Creatinine (0.8-1.5) mg/dl Est GFR ( Amer) Est GFR (Non-Af Amer) POC Glucose (mg/dL) 103 (65-110) mg/dL Random Glucose (75-110) mg/dL Calcium (8.4-10.2) mg/dL Total Bilirubin (0.2-1.3) mg/dl AST (17-59) U/L ALT (21-72) U/L Alkaline Phosphatase (38-126) U/L Troponin I 0.0200 (0.00-0.120) ng/mL Total Protein (6.3-8.2) G/DL Albumin (3.5-5.0) g/dL Globulin (2.2-3.9) gm/dL Albumin/Globulin Ratio (1.0-2.1) Urine Opiates Screen (NEGATIVE) Urine Methadone Screen (NEGATIVE) Ur Barbiturates Screen (NEGATIVE) Ur Phencyclidine Scrn (NEGATIVE) Ur Amphetamines Screen (NEGATIVE) U Benzodiazepines Scrn (NEGATIVE) U Oth Cocaine Metabols (NEGATIVE) U Cannabinoids Screen (NEGATIVE) Laboratory Results - last 24 hr 12/14/17 12/14/17 12/14/17 11:07 11:11 21:49 WBC RBC Hgb Hct MCV MCH MCHC RDW Plt Count Sodium Potassium Chloride Carbon Dioxide Anion Gap BUN Creatinine Est GFR ( Amer) Est GFR (Non-Af Amer) POC Glucose (mg/dL) 103 Random Glucose Calcium Total Bilirubin AST ALT Alkaline Phosphatase Troponin I 0.0200 Total Protein Albumin Globulin Albumin/Globulin Ratio Urine Opiates Screen Positive H Urine Methadone Screen Negative Ur Barbiturates Screen Negative Ur Phencyclidine Scrn Negative Ur Amphetamines Screen Negative U Benzodiazepines Scrn Negative U Oth Cocaine Metabols Negative U Cannabinoids Screen Negative 12/15/17 12/15/17 04:20 04:20 WBC 10.3 RBC 4.32 L Hgb 10.4 L Hct 32.5 L MCV 75.2 L MCH 24.1 L MCHC 32.1 L RDW 15.8 H Plt Count 216 Sodium 143 Potassium 2.7 L Chloride 106 Carbon Dioxide 26 Anion Gap 14 BUN 10 Creatinine 0.9 Est GFR ( Amer) > 60 Est GFR (Non-Af Amer) > 60 POC Glucose (mg/dL) Random Glucose 101 Calcium 8.1 L Total Bilirubin 0.9 AST 18 ALT 44 Alkaline Phosphatase 55 Troponin I Total Protein 5.4 L Albumin 2.7 L D Globulin 2.6 Albumin/Globulin Ratio 1.0 Urine Opiates Screen Urine Methadone Screen Ur Barbiturates Screen Ur Phencyclidine Scrn Ur Amphetamines Screen U Benzodiazepines Scrn U Oth Cocaine Metabols U Cannabinoids Screen Review of Systems - Review of Systems All systems: reviewed and no additional remarkable complaints except (as per HPI ) Critical Care Progress Note - Nutrition Nutrition: Nutrition Category Date Time Status Heart Healthy Diet [DIET] Diets 12/14/17 Breakfast Active Assessment/Plan - Assessment and Plan (Free Text) Assessment: 57 years old homeless, male with extensive PMHx admitted for pulmonary embolism and Systolic CHF exacerbation. Plan: Systolic CHF -in exacerbation -improving clinically -stable to be transfer to Telemetry -decrease furosemide 40 mg PO from BID to daily -c/w carvedilol 6.25 mg PO BID -c/w lisinopril 20 mg PO QD -c/w spironolactone -elevated pro-BNP 8460, ( was wnl on 07/06/18) - Echo reported LV severely impaired, EF 25-30 % -as per Dr. Blanc, cardiology, patient was placed in a Life[employer], but has not been complaint. -heart healthy diet -CXR reported as increased interstitial marking acute vs chronic with basilar opacities atelectasis and/or infiltrates -Cardiology on consult, Dr. Blanc, recommendations appreciated Pulmonary embolism -hemodinamically stable -possible subacute or chronic -DC Therapeutic Lovenox 1 mg/kg Q12 -start Eliquis 10 mg PO BID x 7 days, then decrease to 5 mg PO BID as maintenance dose -GFR> 60, BUN/Cr wnl -as per old records, patient has a h/o PE, and is s/p IVC filter placement -Lower extremities dupplex US on 12/13/17 reported as no evidence of DVT -CT chest on admission reported a left lower lobe filling defect -h/o DVT s/p 6 months with anticoagulation after CVA episode 5 years ago Hypokalemia -K+today 2.7 -s/p Potassium 40 mEQ Po once, and IV potassium 10 MEQ 2 bags -repeat potassium -check phosp, mag levels -replace potassium as needed Diarrheas -acute, 2 episodes since admission -no in antibiotics and no recent antibiotic therapy -likely 2/2 viral infection -afebrile, no leukocytosis -f/u and consider stool for leukocytes, C-diff H/O of A fib -CHADS-VASC score 4, 4.8 % stroke risk per year -unclear why patient is no in anticoagulation -started on Eliquis on 12/15/17 -on Coreg -rate control H/O CAD -troponin I x 3 wnl -c/w coreg 6.25 mg PO BID -c/w aspirin 81 QD -c/w statin Lipitor 20 mg QD -heart healthy diet H/O Seizures -controlled on keppra -On keppra 750 mg PO BID DVT prophylaxis started on Eliquis today DC therapeutic Lovenox - Date & Time Date: 12/15/17 Time: 09:00 <Marino Kaur - Last Filed: 12/15/17 17:31> CCU Subjective - Physician Review Subjective (Free Text): Attestation: Patient seen and examined at the bedside with Resident Dr. Aida Heck; and I agree with her outline of plans and management documented above as discussed on AM rounds reflecting my review of all applicable clinical data, and participation in the care of the patient throughout the day in ICU; November.
--- NOTE | 2017-12-15 10:20 | CP.PCM.CON ---
History of Present Illness - History of Present Illness History of Present Illness: This 57-year-old -[place] male was admitted through the emergency room because of shortness of breath associated with increasing pedal edema. He denied chest pain at time but did have a productive cough with thick yellow sputum. There was no hemoptysis. A CT angiogram of the chest revealed an embolus in the left lower lobe pulmonary artery. He was placed on anticoagulation and admitted to the intensive care unit. He has had prior DVT with pulmonary embolism approximate 5 years ago at which time he had an IVC filter implanted. He has a long cardiac history with multivessel CAD and reduced LVEF but apparently has been noncompliant with medical therapy. The patient has had a prior CVA with residual left hemiparesis and appears to favor that side when in bed. The CT scan of the chest also showed small bilateral pleural effusions but no areas of consolidation. Mild gravitational congestion is noted in the left lung because of the patient's positioning. He is an every day smoker, but keeps the number limited to less than 5 cigarettes per day. Past Patient History - Infectious Disease Hx of Infectious Diseases: None - Past Medical History & Family History Past Medical History?: Yes - Past Social History Smoking Status: Light Smoker < 10 Cigarettes Daily Chewing Tobacco Use: No Cigar Use: No - CARDIAC Hx Atrial Fibrillation: Yes Hx Congestive Heart Failure: Yes Hx Hypercholesterolemia: Yes Hx Hypertension: Yes Hx Peripheral Edema: Yes - PULMONARY Hx Pneumonia: No Hx Pulmonary Embolism: Yes Hx Sleep Apnea: No - NEUROLOGICAL HX Cerebrovascular Accident: Yes Hx Seizures: Yes (last episode 03/2017) - HEENT Hx HEENT Problems: No - RENAL Hx Chronic Kidney Disease: No - ENDOCRINE/METABOLIC Hx Endocrine Disorders: No - HEMATOLOGICAL/ONCOLOGICAL Hx Blood Disorders: No - INTEGUMENTARY Hx Dermatological Problems: No - MUSCULOSKELETAL/RHEUMATOLOGICAL Hx Musculoskeletal Disorders: Yes Other/Comment: USES WHEELCHAIR AND WALKER - GASTROINTESTINAL Hx Gastritis: Yes - GENITOURINARY/GYNECOLOGICAL Hx Incontinence: Yes Hx Urinary Tract Infection: Yes - PSYCHIATRIC Hx Substance Use: Yes - SURGICAL HISTORY Hx Surgeries: Yes Other/Comment: ivc filter - ANESTHESIA Hx Anesthesia: Yes Hx Anesthesia Reactions: No Hx Malignant Hyperthermia: (pt does not know) Meds Allergies/Adverse Reactions: Allergies Allergy/AdvReac Type Severity Reaction Status Date / Time PORK Allergy Mild URTICARIA Verified 09/12/17 19:41 - Medications Medications: Current Medications Aspirin (Ecotrin) 81 mg PO DAILY [facility] Last Admin: 12/15/17 08:53 Dose: 81 mg Atorvastatin Calcium (Lipitor) 20 mg PO DAILY [facility] Last Admin: 12/15/17 08:54 Dose: 20 mg Carvedilol (Coreg) 6.25 mg PO BID [facility] Last Admin: 12/15/17 08:52 Dose: 6.25 mg Enoxaparin Sodium (Lovenox) 110 mg SC Q12 [facility] PRN Reason: Protocol Last Admin: 12/15/17 08:54 Dose: 110 mg Furosemide (Lasix) 40 mg PO DAILY [facility] Levetiracetam (Keppra) 750 mg PO BID [facility] Last Admin: 12/15/17 08:53 Dose: 750 mg Lisinopril (Zestril) 20 mg PO DAILY [facility] Last Admin: 12/15/17 08:55 Dose: 20 mg Physical Exam - Additional Findings Additional findings: Well-nourished, well-developed male in no acute distress, lying in bed. There is weakness of the left upper and lower extremities with contracture of the left upper extremity. His memory appears to be intact but his speech is slightly slurred. The pharynx is pink and mucous membranes are moist. Neck is supple and trachea is midline. The patient repeatedly lies on his left side and there is some asymmetry of the thorax. There is no dullness on chest percussion. The left hemithorax is slightly smaller than the right. Breath sounds are present bilaterally. Scattered sonorous rhonchi heard throughout both lung ely. There are no audible wheezes or bronchial breath sounds. Few medium rales are heard in dependent areas of the left lung. Heart sounds are distant and the rhythm is irregularly irregular. The abdomen is soft and nontender. There is trace ankle edema noted bilaterally. No cyanosis. Results - Vital Signs Recent Vital Signs: Last Vital Signs Temp 98.3 F 12/15/17 08:00 Pulse 83 12/15/17 10:00 Resp 18 12/15/17 10:00 BP 130/74 12/15/17 10:00 Pulse Ox 100 12/15/17 10:00 - Labs Result Diagrams: 12/16/17 04:45 12/16/17 04:45 Labs: Laboratory Results - last 24 hr 12/14/17 12/14/17 12/14/17 11:07 11:11 21:49 WBC RBC Hgb Hct MCV MCH MCHC RDW Plt Count Sodium Potassium Chloride Carbon Dioxide Anion Gap BUN Creatinine Est GFR ( Amer) Est GFR (Non-Af Amer) POC Glucose (mg/dL) 103 Random Glucose Calcium Total Bilirubin AST ALT Alkaline Phosphatase Troponin I 0.0200 Total Protein Albumin Globulin Albumin/Globulin Ratio Urine Opiates Screen Positive H Urine Methadone Screen Negative Ur Barbiturates Screen Negative Ur Phencyclidine Scrn Negative Ur Amphetamines Screen Negative U Benzodiazepines Scrn Negative U Oth Cocaine Metabols Negative U Cannabinoids Screen Negative 12/15/17 12/15/17 04:20 04:20 WBC 10.3 RBC 4.32 L Hgb 10.4 L Hct 32.5 L MCV 75.2 L MCH 24.1 L MCHC 32.1 L RDW 15.8 H Plt Count 216 Sodium 143 Potassium 2.7 L Chloride 106 Carbon Dioxide 26 Anion Gap 14 BUN 10 Creatinine 0.9 Est GFR ( Amer) > 60 Est GFR (Non-Af Amer) > 60 POC Glucose (mg/dL) Random Glucose 101 Calcium 8.1 L Total Bilirubin 0.9 AST 18 ALT 44 Alkaline Phosphatase 55 Troponin I Total Protein 5.4 L Albumin 2.7 L D Globulin 2.6 Albumin/Globulin Ratio 1.0 Urine Opiates Screen Urine Methadone Screen Ur Barbiturates Screen Ur Phencyclidine Scrn Ur Amphetamines Screen U Benzodiazepines Scrn U Oth Cocaine Metabols U Cannabinoids Screen Assessment & Plan - Assessment and Plan (Free Text) Assessment: This 57 year old male was admitted through the emergency room with SOB. CT angio of the chest reveals LLL pulmonary embolism of undetermined age. He does have a prior history of DVT and PE with an IVC filter insertion. Whether this current event represents and acute PE, or if this is residual thrombus from a prior episode is unclear. He does have multiple comorbidities and apparently has been non-compliant with treatment. He will require group home, likely life- long anticoagulation and smoking cessation. - Date & Time Date: 12/15/17 Time: 10:16
[2017-12-15 10:57] LABS: MAGNESIUM 1.9 MG/DL (1.6-2.3)
--- NOTE | 2017-12-15 12:36 | PQF GENQUE ---
Dr. Ludwig, 2 queries: 1. Consultants documented the following information with no mention of this diagnosis in your documentation. Please indicate in your next progress note and /or discharge summary your agreement with analytics consultant or provide clarification that this diagnosis is not a current condition. 2. If in agreement: Present on Admission ? Diagnosis: Acute Systolic CHF: POA Documented by: Hospitalist , Bread Supervisor and Sports Activities Foul Judge CXR: Impression: Mild cardiomegaly with uncoiling of the aorta; increased interstitial markings acute versus chronic with basilar opacities atelectasis and/or infiltrate Hospitalist note: #. Acute Systolic CHF - Consult Dr Blanc cardiology - Follow Troponin - IV lasix Q12 - Coreg - Zestril Critical Care notes: admitted for Pulmonary embolism and CHF exacerbation. This form is a permanent part of the medical record Clarification of your documentation is requested to better reflect the severity of illness and intensity of treatment of your patient. Indicators present [] Specify: [] [] Specify: [] [] Specify: [] [] Specify: [] Location in the medical record that reflects the above clinical findings: [] Treatment Provided: [] PHYSICIAN'S RESPONSE Based on your medical judgment of the clinical indicators outlined above please clarify the following: [] Practitioner response [] If unable to determine, please check the box, sign and date. Present On Admission (POA) Indicator: [] Present at the time of admission [] Not present at the time of admission [] Clinically Undetermined In responding to this query, please exercise your independent professional judgment. The fact that a question is asked does not imply that any particular answer is desired or expected. Thank you for your clarification on this documentation. If you have any questions please call. * Thank you, Rae Rubio RN ext. #[phone] MTDD
[2017-12-16 05:37] LABS: HEMOGLOBIN 10.7 g/dL (12.0-18.0); MEAN CELL VOLUME 75.7 fl (80.0-94.0); MEAN CORPUSCULAR HEMOGLOBIN 24.2 pg (27.0-31.0); RBC 4.42 Mil/uL (4.40-5.90); RED CELL DISTRIBUTION WIDTH 15.8 % (11.5-14.5); WHITE BLOOD COUNT 9.9 K/uL (4.8-10.8)
[2017-12-16 06:09] LABS: ALBUMIN 2.8 g/dL (3.5-5.0); ALT/SGPT 41 U/L (21-72); AST/SGOT 14 U/L (17-59); BLOOD UREA NITROGEN 11 mg/dl (9-20); CALCIUM 8.4 mg/dL (8.4-10.2); GFR AFRICAN-AMERICAN > 60; GFR NON-AFRICAN AMERICAN > 60
--- NOTE | 2017-12-16 08:15 | PN ---
DAILY PROGRESS NOTE DATE: 12/15/2017 SUBJECTIVE: The patient is seen today on 12/15/2017. He has not in any cardiopulmonary distress. PHYSICAL EXAMINATION VITAL SIGNS: Blood pressure 139/75, temperature 97.2, respiratory rate 20 and pulse 69. HEENT: Pupils are equal and reactive to light. Normal-appearing mucosa of the conjunctivae, oropharynx, and nasal membrane mucosa. NECK: Supple. No JVD. No carotid bruit. No lymph node. No thyromegaly. CHEST AND LUNGS: Bilaterally symmetrical expansion. Good air exchange. No rales. No rhonchi. CARDIOVASCULAR: PMI not localized. S1 and S2. No additional sounds. ABDOMEN: Normoactive bowel sounds. No tenderness. No organomegaly. No masses. EXTREMITIES: No cyanosis. No clubbing. No edema. CENTRAL NERVOUS SYSTEM: Deformity and weakness of the left side status post CVA. ASSESSMENT: 1. Pulmonary embolism. 2. Status post cerebrovascular accident. 3. Hypertension. PLAN: Heparin was switched to Eliquis and the patient was seen by laboratory analyst and will be transferred to telemetry floor in anticipation for discharge. Toro Ludwig MD
--- NOTE | 2017-12-16 14:01 | CP.PCM.PN ---
Subjective - Date & Time of Evaluation Date of Evaluation: 12/16/17 Time of Evaluation: 13:55 - Subjective Subjective: The patient was seen on rounds in the intensive care unit this morning. He is not in any acute distress at the present time and remains well oxygenated. His vital signs have been stable and he has been afebrile. He has been placed on Eliquis at 10 mg twice a day. There has been no hemoptysis. His CBC remained stable and his chemistries show that he is protein deficient. Breath sounds are present bilaterally with scattered rhonchi. No audible wheezing or bronchial breathing. No rub. Few scattered rhonchi in the dependent zones of both lungs. Patient will be required to have lifelong anticoagulation. He is presently stable and may be transferred out of the intensive care unit. Objective - Vital Signs/Intake and Output Vital Signs (last 24 hours): Temp Pulse Resp BP Pulse Ox 99.3 F 66 38 H 122/70 100 12/16/17 12:00 12/16/17 12:00 12/16/17 12:00 12/16/17 12:00 12/16/17 12:00 Intake and Output: 12/16/17 12/16/17 11:59 23:59 Intake Total 85 Output Total 200 Balance -115 - Medications Medications: Current Medications Apixaban (Eliquis) 10 mg PO BID [facility] PRN Reason: Protocol Last Admin: 12/16/17 09:26 Dose: 10 mg Aspirin (Ecotrin) 81 mg PO DAILY [facility] Last Admin: 12/16/17 09:26 Dose: 81 mg Atorvastatin Calcium (Lipitor) 20 mg PO DAILY [facility] Last Admin: 12/16/17 09:27 Dose: 20 mg Carvedilol (Coreg) 6.25 mg PO BID [facility] Last Admin: 12/16/17 09:25 Dose: 6.25 mg Furosemide (Lasix) 40 mg PO DAILY [facility] Last Admin: 12/16/17 09:16 Dose: 40 mg Levetiracetam (Keppra) 750 mg PO BID [facility] Last Admin: 12/16/17 09:27 Dose: 750 mg Lisinopril (Zestril) 20 mg PO DAILY [facility] Last Admin: 12/16/17 09:24 Dose: 20 mg Spironolactone (Aldactone) 25 mg PO DAILY [facility] Last Admin: 12/16/17 09:25 Dose: 25 mg - Labs Labs: 12/16/17 04:45 12/16/17 04:45 PT 12.4 Seconds (9.8-13.1) 12/13/17 18:43 INR 1.1 (0.9-1.2) 12/13/17 18:43 APTT 25.5 Seconds (25.6-37.1) L 12/13/17 18:43
[2017-12-16] MEDS ORDERED: Potassium Chloride 20 mEq ER Tab PO ONE (19:42)
--- NOTE | 2017-12-16 22:55 | PN ---
DAILY PROGRESS NOTE DATE: 12/16/2017 SUBJECTIVE: The patient is seen today 12/16/2017. He is not in any cardiopulmonary distress. PHYSICAL EXAMINATION VITAL SIGNS: Blood pressure 125/95, temperature 98.4, respiratory rate 29 and pulse 79. HEENT: Pupils equal, reactive to light and normal-appearing mucosa of the conjunctivae, oropharynx and nasal membrane mucosa. NECK: Supple. No JVD. No carotid bruit. No lymph node. No thyromegaly. CHEST AND LUNGS: Bilateral symmetrical expansion with good air exchange. No rales. No rhonchi. CARDIOVASCULAR: PMI not localized. S1 and S2. No additional sounds. ABDOMEN: Normoactive bowel sounds. No tenderness. No organomegaly. No masses. EXTREMITIES: No cyanosis, no clubbing, no edema. GROWTH MEDIA MIXER MUSHROOM: Alert, awake and oriented x2. There is left-sided weakness and deformity. ASSESSMENT: Pulmonary embolism status post cerebrovascular accident with left-sided weakness, hypertension and history of seizure disorder. [facility] MD Oziel
--- NOTE | 2017-12-17 07:31 | CP.PCM.PN ---
Subjective - Date & Time of Evaluation Date of Evaluation: 12/17/17 Time of Evaluation: 06:40 - Subjective Subjective: patient is lying in bed comfortably. no chest pain. Objective - Vital Signs/Intake and Output Vital Signs (last 24 hours): Temp Pulse Resp BP Pulse Ox 98.4 F 63 18 132/88 100 12/17/17 05:00 12/17/17 05:00 12/17/17 05:00 12/17/17 05:00 12/17/17 05:00 Intake and Output: 12/17/17 12/17/17 06:59 18:59 Intake Total 250 Balance 250 - Medications Medications: Current Medications Apixaban (Eliquis) 10 mg PO BID [facility] PRN Reason: Protocol Last Admin: 12/16/17 09:26 Dose: 10 mg Aspirin (Ecotrin) 81 mg PO DAILY [facility] Last Admin: 12/16/17 09:26 Dose: 81 mg Atorvastatin Calcium (Lipitor) 20 mg PO DAILY [facility] Last Admin: 12/16/17 09:27 Dose: 20 mg Carvedilol (Coreg) 6.25 mg PO BID [facility] Last Admin: 12/16/17 16:56 Dose: 6.25 mg Furosemide (Lasix) 40 mg PO DAILY [facility] Last Admin: 12/16/17 09:16 Dose: 40 mg Levetiracetam (Keppra) 750 mg PO BID [facility] Last Admin: 12/16/17 16:57 Dose: 750 mg Lisinopril (Zestril) 20 mg PO DAILY [facility] Last Admin: 12/16/17 09:24 Dose: 20 mg Spironolactone (Aldactone) 25 mg PO DAILY [facility] Last Admin: 12/16/17 09:25 Dose: 25 mg - Labs Labs: 12/16/17 04:45 12/16/17 04:45 PT 12.4 Seconds (9.8-13.1) 12/13/17 18:43 INR 1.1 (0.9-1.2) 12/13/17 18:43 APTT 25.5 Seconds (25.6-37.1) L 12/13/17 18:43 - Constitutional Appears: Chronically Ill - Head Exam Head Exam: NORMAL INSPECTION - Eye Exam Eye Exam: Normal appearance - ENT Exam ENT Exam: Mucous Membranes Moist - Neck Exam Neck Exam: Full ROM - Respiratory Exam Respiratory Exam: Decreased Breath Sounds - Cardiovascular Exam Cardiovascular Exam: REGULAR RHYTHM - GI/Abdominal Exam GI & Abdominal Exam: Normal Bowel Sounds - Rectal Exam Rectal Exam: Deferred - Extremities Exam Extremities Exam: Pedal Edema - Back Exam Back Exam: NORMAL INSPECTION - Neurological Exam Neurological Exam: Alert Assessment and Plan (1) CAD (coronary artery disease) Assessment & Plan: knonw CAD, but no active angina. medical therapy, although patient has significant history of noncompliance. Status: Acute (2) CHF (congestive heart failure) Assessment & Plan: cheonic systolic dysfunction. Lifevest placed but patient does not wear it. Status: Acute (3) CVA, old, hemiparesis Assessment & Plan: medical therapy. Status: Acute
[2017-12-17 08:16] LABS: BLOOD UREA NITROGEN 11 mg/dl (9-20); CALCIUM 8.7 mg/dL (8.4-10.2); GFR AFRICAN-AMERICAN > 60; GFR NON-AFRICAN AMERICAN > 60
[2017-12-17] MEDS ORDERED: Albuterol-Ipratrop 3 mg / 0.5 (3 ml) UD INH STA (10:31)
[2017-12-17] MEDS: Albuterol-Ipratrop 3 mg / 0.5 (3 ml) UD INH SCH ×2 (16:18→22:44)
--- NOTE | 2017-12-18 00:36 | PN ---
DATE: 12/17/2017 SUBJECTIVE: The patient is seen today 12/17/2017. He is not in any cardiopulmonary distress. PHYSICAL EXAMINATION VITAL SIGNS: Blood pressure 122/88, temperature 98.6, respiratory rate 20 and pulse 73. HEENT: Pupils equal and reactive to light. Normal-appearing mucosa of the conjunctivae, oropharynx and nasal membrane mucosa. NECK: Supple. No JVD. No carotid bruit. No lymph node. No thyromegaly. CHEST AND LUNGS: Bilateral symmetrical expansion. Good air exchange. No rales. No rhonchi. CARDIOVASCULAR: System PMI not localized. S1 and S2. No additional sounds. ABDOMEN: Normoactive bowel sounds. No tenderness. No organomegaly. No masses. EXTREMITIES: No cyanosis. No clubbing. No edema. QUALITY IMPROVEMENT ENGINEER: Alert, awake and oriented x2. No neurological deficit could be appreciated. The patient has slight left-sided weakness. ASSESSMENT: Pulmonary embolism and cerebrovascular accident with left-sided weakness, hypertension. PLAN: Continue current anticoagulant. Discussed the patient's condition with Enterprise Business Architect. Discharge planning. Toro Ludwig MD
[2017-12-18] MEDS: Albuterol-Ipratrop 3 mg / 0.5 (3 ml) UD INH SCH ×3 (07:18→19:17)
--- NOTE | 2017-12-18 10:02 | RAD ---
HISTORY: shortness of breath COMPARISON: Portable chest 12/13/2017. TECHNIQUE: Chest PA and lateral FINDINGS: LUNGS: Borderline probable compression atelectasis in the medial left base due to elevated left hemidiaphragm. Infiltrate is not completely excluded here but is not favored. The medial left hemidiaphragm is silhouetted. PLEURA: No significant pleural effusion identified. No pneumothorax apparent. CARDIOVASCULAR: Cardiomegaly appears stable. No definite pulmonary venous congestion. OSSEOUS STRUCTURES: No significant abnormalities. VISUALIZED UPPER ABDOMEN: Normal. OTHER FINDINGS: None. IMPRESSION: Medial basilar atelectasis favored over infiltrate at the left base. The hemidiaphragm elevation is stable. Cardiomegaly is also stable. No definite pulmonary vascular derangement appreciated.
--- NOTE | 2017-12-18 13:50 | CP.PCM.PN ---
Subjective - Date & Time of Evaluation Date of Evaluation: 12/18/17 Time of Evaluation: 13:47 - Subjective Subjective: Seated on the edge of the bed, appears comfortable. Head some shortness of breath earlier today and yesterday. Continues to have a congested cough which is minimally productive. Repeat chest x-ray performed shows chronically elevated left hemidiaphragm and increased bronchovascular markings mostly in the left lower lobe. On exam breath sounds are slightly diminished and rhonchi are present in the dependent regions of both lungs, more so left than right. No bronchial breathing or egophony. No audible wheezing. Few dry to medium rales heard in the bases. Chronically elevated left hemidiaphragm likely secondary to body habitus and left hemiparesis. The patient does lie on his left side whenever in bed which exacerbates the current problem. Advised out of bed activity and deep breathing with coughing is very helpful. Presently on Eliquis, which will be lifelong most probably. Objective - Vital Signs/Intake and Output Vital Signs (last 24 hours): Temp Pulse Resp BP Pulse Ox 98 F 64 18 135/91 H 100 12/18/17 12:00 12/18/17 12:00 12/18/17 12:00 12/18/17 12:00 12/18/17 12:00 - Medications Medications: Current Medications Albuterol/Ipratropium (Duoneb 3 Mg/0.5 Mg (3 Ml) Ud) 3 ml INH RTID [facility] Last Admin: 12/18/17 13:33 Dose: Not Given Apixaban (Eliquis) 10 mg PO BID [facility] PRN Reason: Protocol Last Admin: 12/18/17 10:12 Dose: 10 mg Aspirin (Ecotrin) 81 mg PO DAILY [facility] Last Admin: 12/18/17 10:15 Dose: 81 mg Atorvastatin Calcium (Lipitor) 20 mg PO DAILY [facility] Last Admin: 12/18/17 10:13 Dose: 20 mg Carvedilol (Coreg) 6.25 mg PO BID [facility] Last Admin: 12/18/17 10:15 Dose: 6.25 mg Furosemide (Lasix) 40 mg PO DAILY [facility] Last Admin: 12/18/17 10:12 Dose: 40 mg Levetiracetam (Keppra) 750 mg PO BID [facility] Last Admin: 12/18/17 10:12 Dose: 750 mg Lisinopril (Zestril) 20 mg PO DAILY [facility] Last Admin: 12/18/17 10:13 Dose: 20 mg Spironolactone (Aldactone) 25 mg PO DAILY [facility] Last Admin: 12/18/17 10:13 Dose: 25 mg - Labs Labs: 12/16/17 04:45 12/17/17 07:48 PT 12.4 Seconds (9.8-13.1) 12/13/17 18:43 INR 1.1 (0.9-1.2) 12/13/17 18:43 APTT 25.5 Seconds (25.6-37.1) L 12/13/17 18:43
[2017-12-19] MEDS: Albuterol-Ipratrop 3 mg / 0.5 (3 ml) UD INH SCH ×3 (07:30→19:36)
--- NOTE | 2017-12-19 19:33 | PN ---
DATE: 12/18/2017 SUBJECTIVE: He was less short of breath and he was on Eliquis 10 mg twice a day. PHYSICAL EXAMINATION VITAL SIGNS: Blood pressure 115/75, temperature 97.3, respiratory rate 18 and pulse 66. HEENT: Pupils equal and reactive to light. Normal-appearing mucosa of the conjunctivae, oropharynx and nasal membrane mucosa. NECK: Supple. No JVD. No carotid bruit. No lymph node. No thyromegaly. CHEST AND LUNGS: Bilateral symmetrical expansion. Good air exchange. No rales. No rhonchi. CARDIOVASCULAR: PMI not localized. S1 and S2. No additional sounds. ABDOMEN: Normoactive bowel sounds. No tenderness. No organomegaly. No masses. EXTREMITIES: No cyanosis. No clubbing. No edema. MEDICAL TECH: Alert, awake and oriented x2. The patient has left-sided hemiparesis as well as aphasia. ASSESSMENT: 1. Pulmonary embolism. 2. Cerebrovascular accident. 3. Hypertension. PLAN: Continue Eliquis 10 mg twice a day and we will convert to 5 mg twice a day on discharge. Continue current medications. Toro Ludwig MD
[2017-12-20] MEDS: Albuterol-Ipratrop 3 mg / 0.5 (3 ml) UD INH SCH ×3 (07:38→19:37)
--- NOTE | 2017-12-21 01:34 | PN ---
DAILY PROGRESS NOTE DATE: 12/20/2017 SUBJECTIVE: The patient is seen today, 12/20/2017. The patient is having aphasia as well as mild shortness of breath. PHYSICAL EXAMINATION VITAL SIGNS: Blood pressure is 118/79, temperature 97.8, respiratory rate 20 and pulse 72. HEENT: Pupils equal, reactive to light. Normal-appearing mucosa of the conjunctivae, oropharynx and nasal membrane mucosa. NECK: Supple. No JVD. No carotid bruit. No lymph node. No thyromegaly. CHEST AND LUNGS: Bilateral symmetrical expansion. Good air exchange. No rales. No rhonchi. CARDIOVASCULAR: PMI not localized. S1 and S2. No additional sounds. ABDOMEN: Normoactive bowel sounds. No tenderness. No organomegaly. No masses. EXTREMITIES: No cyanosis. No clubbing. No edema. HOUSE CALLS NURSE PRACTITIONER: Alert, awake and oriented x2. The patient has left-sided hemiplegia and aphasia. ASSESSMENT: Pulmonary embolism, cerebrovascular accident with left-sided any plegia and hypertension. PLAN: Continue current medications, physical therapy and will request for group home placement. Toro Ludwig MD
[2017-12-21] MEDS: Albuterol-Ipratrop 3 mg / 0.5 (3 ml) UD INH SCH ×3 (08:05→19:09)
[2017-12-22] MEDS ORDERED: Albuterol-Ipratrop 3 mg / 0.5 (3 ml) UD INH STA (00:48)
--- NOTE | 2017-12-22 04:06 | PN ---
DATE: 12/21/2017 SUBJECTIVE: The patient is seen today, 12/21/2017. He is not in any cardiopulmonary distress as he was seen today. The patient has left-sided hemiparesis. Started on physical therapy. PHYSICAL EXAMINATION: VITAL SIGNS: Blood pressure of 114/76, temperature of 97.0, respiratory rate of 18 and pulse of 90. HEENT: Pupils are equal and reactive to light. Normal appearing mucosa of the conjunctivae, oropharynx and nasal membrane mucosa. NECK: Supple. No JVD. No carotid bruit. No lymph node. No thyromegaly. CHEST/LUNGS: Bilateral symmetrical expansion. Good air exchange. No rales and no rhonchi. CARDIOVASCULAR SYSTEM: PMI not localized. S1 and S2. No additional sounds. ABDOMEN: Normoactive bowel sounds. No tenderness. No organomegaly. No masses. EXTREMITIES: No cyanosis, no clubbing, and no edema. CENTRAL NERVOUS SYSTEM: Alert, awake and oriented x2. No neurological difficulty appreciated. ASSESSMENT: 1. Pulmonary embolism. 2. Hypertension. 3. Status post cerebrovascular accident with left-sided weakness. PLAN: Continue current physical therapy and occupational therapy. The plan is to discharge the patient to subacute rehabilitation. Toro Ludwig MD
[2017-12-22] MEDS: Albuterol-Ipratrop 3 mg / 0.5 (3 ml) UD INH SCH ×2 (07:52→13:25)
[2017-12-22 08:04] VITALS: O2SAT 100
[2017-12-22 12:09] VITALS: TEMP 98.6
[2017-12-22 16:34] VITALS: BP 122/82; PULSE 75; RESP 19
--- NOTE | 2017-12-23 03:02 | DS ---
REASON FOR ADMISSION: He is a 57-year-old male with history of multiple medical problems who was admitted for pulmonary embolism. COURSE OF HOSPITALIZATION: The patient was admitted to intensive care unit and he was started on heparin. The patient had a pulmonary consult done by Dr. Davidson. The patient was switched from heparin to Eliquis 10 mg twice a day for 7 days. The patient was discharged on Eliquis 5 mg twice a day to subacute rehabilitation after starting physical therapy. FINAL DIAGNOSES: Pulmonary embolism, cerebrovascular accident with left-sided weakness, aphasia and hypertension. [facility] MD Oziel
== END 2017-12-22 17:00 | DRG 541 ==
LOC: H.ER 17:51 → H.ERHOLD 23:17 → H.ICU/CCU 12-14 07:02 → H.TEL 12-16 20:27
PROVIDERS: ADMIT Internal Medicine; ATTEND Internal Medicine
DX: I26.99 Other pulmonary embolism without acute cor pulmonale (principal); I50.23 Acute on chronic systolic (congestive) heart failure; I27.20 Pulmonary hypertension, unspecified; I48.91 Unspecified atrial fibrillation; I69.354 Hemiplegia and hemiparesis following cerebral infarction affecting left non-dominant side; G40.909 Epilepsy, unspecified, not intractable, without status epilepticus; E78.00 Pure hypercholesterolemia, unspecified; F17.210 Nicotine dependence, cigarettes, uncomplicated; D50.8 Other iron deficiency anemias; E87.6 Hypokalemia; I11.0 Hypertensive heart disease with heart failure; J44.9 Chronic obstructive pulmonary disease, unspecified; I69.320 Aphasia following cerebral infarction; I25.10 Atherosclerotic heart disease of native coronary artery without angina pectoris; E78.5 Hyperlipidemia, unspecified; Z91.19 Patient's noncompliance with other medical treatment and regimen; Z86.711 Personal history of pulmonary embolism; Z86.718 Personal history of other venous thrombosis and embolism; Z87.440 Personal history of urinary (tract) infections; Z99.3 Dependence on wheelchair; Z79.01 Long term (current) use of anticoagulants; Z79.82 Long term (current) use of aspirin; Z59.0 Homelessness